=== PATIENT | female | born 1945 | race Caucasian/White ===

== ENCOUNTER → 2017-05-08 | Outpatient (CLI) | payer OTHER ==
[~2017-05-08] MED LIST: ASPI81TA85 PO; ATEN25TA PO; CALC600T57 PO; CALC600T60 PO; CINN500C9 PO; CRAN500C2 PO; CRES5TAB PO; FISH1CAP14 PO; LEVO10VL PO; LIPI20TA PO; MAGN400T14 PO; METF500T13 PO; MULT1TAB8 PO; NEXI40CA PO; OMEP20CA3 PO; PRAV20TA2 PO; TYLE1TAB5 PO; VITA2000 PO; VITATAB56 PO
--- NOTE | 2017-05-08 13:04 | REPMRS ---
Patient History The patient states she has not had a clinical breast exam in over a year. No known family history of cancer. Reductions of both breasts, 2000. Took hormonal contraceptives for 2 years. Took unspecified hormones for 10 years. Digital Woman Screen Mammo: May 08, 2017 - Exam #: [id number] Bilateral CC and MLO view(s) were taken. Technologist: Elsie Lira, Technologist Prior study comparison: April 14, 2016, digital woman screen mammo performed at [facility]. February 15, 2015, digital woman screen mammo performed at [facility]. FINDINGS: There are scattered fibroglandular densities. There has been no change in the appearance of the mammogram from the prior studies. There is a mild amount of residual fibroglandular tissue which is fairly symmetric. There is no interval development of dominant mass, architectural distortion, or clustered microcalcification suggestive of malignancy. ASSESSMENT: BI-RADS/ACR category 1 mammogram. Negative. Recommendation Routine screening mammogram in 1 year (for women over age 40). This mammogram was interpreted with the aid of an FDA-approved computer-aided dectection system. Electronically Signed By: Stephen Fan MD 05/08/17 [id number]
== END ==
LOC: M WHC 10:50
PROVIDERS: ATTEND Family Medicine
DX: Z12.31 Encounter for screening mammogram for malignant neoplasm of breast (principal)

== ENCOUNTER → 2017-06-11 | Outpatient (CLI) | payer OTHER ==
--- NOTE | 2017-06-13 10:05 | DEXA ---
AP SPINE L1 - L4 0.903 -2.4 -0.6 LT FEMUR TOTAL 0.825 -1.5 0.2 RT FEMUR TOTAL 0.805 -1.6 0.0 TOTAL BODY TOTAL OTHER DUAL FEMUR FRAX* ASSESSMENT Risk factors: Not performed. 10 year probability of fracture Major osteoporotic fracture % Hip fracture % COMMENTS: There is low bone density of the spine and hips. The density of the spine has increased 1.9% since 05/2015. The density of the left hip has decreased 0.5% since 05/2015. The density of the right hip has decreased 5.2% since 05/2015. FOLLOW-UP: Recommendation for the next bone density exam: 2 years. GILLES
== END ==
LOC: M WHC 12:51
PROVIDERS: ATTEND Internal Medicine Endocrinology, Diabetes & Metabolism
DX: M85.9 Disorder of bone density and structure, unspecified (principal)

== ENCOUNTER 2017-07-19 09:21 | Outpatient (CLI) | payer OTHER ==
[~2017-07-19] VITALS: Ht 157.5 cm; Wt 76.2 kg
[2017-07-19] MEDS ORDERED: NS 1,000 ML IV ONE (10:00)
[2017-07-19] MEDS ORDERED: fentaNYL 100 MCG/2 ML INJECTION (J3010) As Ordered ONE (11:25)
[2017-07-19] MEDS ORDERED: LIDOCAINE 2% INJ 100 MG/5 ML SDV (FOR ANES.) As Ordered ONE (11:26)
[2017-07-19] MEDS ORDERED: PROPOFOL 200 MG/20 ML VIAL As Ordered ONE (11:35)
--- NOTE | 2017-07-19 11:35 | ROOR ---
Patient Name: Narda Granado Procedure Date: 07/19/2017 11:17 AM Date of : 1945 Age: 71 Room: [facility] Gender: Female Note Status: Finalized Procedure: Upper GI endoscopy Indications: Suspected esophageal reflux Providers: Santos Silva Jr, MD Referring MD: Parag Thomas MD Requesting Provider: Medicines: Propofol per Anesthesia Complications: No immediate complications. Procedure: Pre-Anesthesia Assessment: - Prior to the procedure, a History and Physical was performed, and patient medications and allergies were reviewed. The patient is competent. The risks and benefits of the procedure and the sedation options and risks were discussed with the patient. All questions were answered and informed consent was obtained. Patient identification and proposed procedure were verified by the physician and the nurse in the pre-procedure area and in the procedure room. Mental Status Examination: alert and oriented. Airway Examination: normal oropharyngeal airway and neck mobility. Respiratory Examination: clear to auscultation. CV Examination: normal. ASA Grade Assessment: II - A patient with mild systemic disease. After reviewing the risks and benefits, the patient was deemed in satisfactory condition to undergo the procedure. The anesthesia plan was to use moderate sedation / analgesia (conscious sedation). Immediately prior to administration of medications, the patient was re-assessed for adequacy to receive sedatives. The heart rate, respiratory rate, oxygen saturations, blood pressure, adequacy of pulmonary ventilation, and response to care were monitored throughout the procedure. The physical status of the patient was re-assessed after the procedure. The Colonoscope was introduced through the anus and advanced to the second part of duodenum. The upper GI endoscopy was accomplished without difficulty. The patient tolerated the procedure well. Findings: The upper third of the esophagus, middle third of the esophagus and lower third of the esophagus were normal. The cardia, gastric fundus, gastric body and gastric antrum were normal. Localized mildly erythematous mucosa without bleeding was found in the prepyloric region of the stomach. The duodenal bulb, first portion of the duodenum and second portion of the duodenum were normal. Impression: - Normal upper third of esophagus, middle third of esophagus and lower third of esophagus. - Normal cardia, gastric fundus, gastric body and antrum. - Erythematous mucosa in the prepyloric region of the stomach. - Normal duodenal bulb, first portion of the duodenum and second portion of the duodenum. - No specimens collected. Recommendation: - Discharge patient to home (ambulatory). - Use Prilosec (omeprazole) 40 mg PO daily. Santos Silva MD Santos Silva Jr, MD 07/19/2017 11:35:00 AM This report has been signed electronically. Number of Addenda: 0 Note Initiated On: 07/19/2017 11:17 AM Estimated Blood Loss: Estimated blood loss: none.
--- NOTE | 2017-07-19 11:48 | ROOR ---
Patient Name: Narda Granado Procedure Date: 07/19/2017 11:18 AM Date of : 1945 Age: 71 Room: [facility] Gender: Female Note Status: Finalized Procedure: Colonoscopy Indications: Positive fecal immunochemical test Providers: Santos Silva Jr, MD Referring MD: Parag Thomas MD Requesting Provider: Medicines: Propofol per Anesthesia Complications: No immediate complications. Procedure: Pre-Anesthesia Assessment: - Prior to the procedure, a History and Physical was performed, and patient medications and allergies were reviewed. The patient is competent. The risks and benefits of the procedure and the sedation options and risks were discussed with the patient. All questions were answered and informed consent was obtained. Patient identification and proposed procedure were verified by the physician and the nurse in the pre-procedure area and in the procedure room. Mental Status Examination: alert and oriented. Airway Examination: normal oropharyngeal airway and neck mobility. Respiratory Examination: clear to auscultation. CV Examination: normal. ASA Grade Assessment: II - A patient with mild systemic disease. After reviewing the risks and benefits, the patient was deemed in satisfactory condition to undergo the procedure. The anesthesia plan was to use moderate sedation / analgesia (conscious sedation). Immediately prior to administration of medications, the patient was re-assessed for adequacy to receive sedatives. The heart rate, respiratory rate, oxygen saturations, blood pressure, adequacy of pulmonary ventilation, and response to care were monitored throughout the procedure. The physical status of the patient was re-assessed after the procedure. The Colonoscope was introduced through the anus and advanced to the cecum, identified by appendiceal orifice and ileocecal valve. The colonoscopy was performed without difficulty. The patient tolerated the procedure well. The quality of the bowel preparation was adequate. Findings: Hemorrhoids were found on perianal exam. Non-bleeding internal hemorrhoids were found during endoscopy. The hemorrhoids were moderate. Multiple small and large-mouthed diverticula were found in the sigmoid colon. The rectum, sigmoid colon, descending colon, transverse colon, ascending colon, cecum and ileocecal valve appeared normal. Impression: - Hemorrhoids found on perianal exam. - Non-bleeding internal hemorrhoids. - Diverticulosis in the sigmoid colon. - The rectum, sigmoid colon, descending colon, transverse colon, ascending colon, cecum and ileocecal valve are normal. - No specimens collected. Recommendation: - Discharge patient to home (ambulatory). - Repeat colonoscopy in 10 years for screening purposes. Santos Silva MD Santos Silva Jr, MD 07/19/2017 11:48:09 AM This report has been signed electronically. Number of Addenda: 0 Note Initiated On: 07/19/2017 11:18 AM Estimated Blood Loss: Estimated blood loss: none.
[2017-07-19] MEDS ORDERED: KETOROLAC 30 MG/ML VIAL (J1885) As Ordered ONE (13:01)
[2017-07-19] MEDS ORDERED: KETOROLAC 30 MG/ML VIAL (J1885) IV ONE (13:15)
[2017-07-19] MEDS ORDERED: SIMETHICONE 80 MG CHEW TAB PO ONE (13:15)
[2017-07-19 13:35] VITALS: BP 143/66
== END 2017-07-19 13:55 | disposition home or self-care (01) ==
LOC: M OPP 09:21
PROVIDERS: ATTEND Surgery
DX: K62.5 Hemorrhage of anus and rectum (principal); K57.30 Diverticulosis of large intestine without perforation or abscess without bleeding; K64.0 First degree hemorrhoids; K64.8 Other hemorrhoids; K31.89 Other diseases of stomach and duodenum; K21.9 Gastro-esophageal reflux disease without esophagitis; I10 Essential (primary) hypertension; E78.5 Hyperlipidemia, unspecified; E11.9 Type 2 diabetes mellitus without complications; E03.9 Hypothyroidism, unspecified; R12 Heartburn; M19.90 Unspecified osteoarthritis, unspecified site; R06.83 Snoring; R06.02 Shortness of breath; Z88.0 Allergy status to penicillin; Z88.1 Allergy status to other antibiotic agents; Z88.8 Allergy status to other drugs, medicaments and biological substances; Z79.84 Long term (current) use of oral hypoglycemic drugs; Z79.899 Other long term (current) drug therapy; Z79.82 Long term (current) use of aspirin
CPT/HCPCS: 43235; 45378; J1885; J3010

== ENCOUNTER 2017-11-26 11:15 | Inpatient (IN) | payer OTHER ==
[~2017-11-26 11:15] MED LIST changes: -ASPI81TA85 PO; -ATEN25TA PO; -CALC600T57 PO; -CALC600T60 PO; -CINN500C9 PO; -CRAN500C2 PO; -CRES5TAB PO; +ENOXAPARIN 40 MG/0.4 ML SYRINGE (J1650) SC; -FISH1CAP14 PO; -LEVO10VL PO; -LIPI20TA PO; -MAGN400T14 PO; -METF500T13 PO; -MULT1TAB8 PO; -NEXI40CA PO; -OMEP20CA3 PO; -PRAV20TA2 PO; -TYLE1TAB5 PO; -VITA2000 PO; -VITATAB56 PO
[2017-11-26] MEDS: MORPHINE 4 MG/ML 1ML VIAL (J2270) IV ×3 (12:09→13:27)
[2017-11-26] MEDS: ONDANSETRON 4MG/2ML VIAL (J2405) IV (12:09)
[2017-11-26 13:09] LABS: BASO # 0.1 10^3/uL (0.0-0.2); BASO % 0.6 % (0.0-1.0); EOS # 0.3 10^3/uL (0.0-0.50); EOS % 3.1 % (0.0-3.0); HEMATOCRIT 41.1 % (36.0-47.0); HEMOGLOBIN 13.8 g/dl (12.0-16.0); LYMPH % 20.6 % (24.0-44.0); MEAN CORPUSCULAR HEMOGLOBIN 29.4 pg (27.0-33.0); MEAN CORPUSCULAR HGB CONC 33.6 g/dl (32.0-36.5); MEAN CORPUSCULAR VOLUME 87.4 fl (80.0-96.0); MONO # 0.6 10^3/uL (0.0-0.8); MONO % 6.1 % (0.0-5.0); NEUTROPHILS # 6.5 10^3/uL (1.8-7.7); NEUTROPHILS % 68.6 % (36.0-66.0); PLATELET COUNT, AUTOMATED 330 10^3/uL (150-450); WHITE BLOOD COUNT 9.5 10^3/uL (4.0-10.0)
[2017-11-26] MEDS: NS 1,000 ML IV ×3 (13:09→23:30)
[2017-11-26 13:18] LABS: INR 0.96; PROTHROMBIN TIME 12.9 SECONDS (12.4-14.5)
[2017-11-26 13:22] LABS: ANION GAP 9 MEQ/L (8-16); BLOOD UREA NITROGEN 13 MG/DL (7-18); CALCIUM LEVEL 9.2 MG/DL (8.8-10.2); CARBON DIOXIDE LEVEL 26 MEQ/L (21-32); CHLORIDE LEVEL 104 MEQ/L (98-107); CK-MB VALUE MASS 1.1 NG/ML (0.0-3.6); CPK CREATINE PHOSPHOKINASE 129 U/L (26-192); CREATININE FOR GFR 0.85 MG/DL (0.55-1.30); GLOMERULAR FILTRATION RATE > 60.0 (>39); GLUCOSE, FASTING 182 MG/DL (70-100); MB/CK RELATIVE INDEX 0.85 (< OR =4); POTASSIUM SERUM 3.5 MEQ/L (3.5-5.1); SODIUM LEVEL 139 MEQ/L (136-145); TROPONIN I < 0.02 NG/ML (< 0.10)
[2017-11-26] MEDS ORDERED: GLUCOSE 4 GM CHEW TABLET PO (14:30)
[2017-11-26] MEDS ORDERED: DEXTROSE 50% 50 ML SYRINGE IV (14:30)
[2017-11-26] MEDS ORDERED: GLUCAGON FOR INJ 1 MG VIAL (J1610) SC (14:30)
[2017-11-26] MEDS: NORCO, ANEXSIA 5/325MG TABLET (HYDROcodone/ACETAMINOPHEN) PO (15:18)
[2017-11-26] MEDS: HumaLOG INSULIN (NovoLOG) PER UNIT SC (18:00)
[2017-11-26] MEDS: VANCOMYCIN HCL 1,000 MG, VIAL MATE ADAPTER 1 EACH in D5W 250 ML IV (18:30)
[2017-11-26] MEDS ORDERED: MIDAZOLAM INJ 2 MG/2 ML VIAL (J2250) As Ordered (20:42)
[2017-11-26] MEDS ORDERED: KETAMINE HCL 200 MG/20 ML VIAL As Ordered (20:42)
[2017-11-26] MEDS ORDERED: PROPOFOL 200 MG/20 ML VIAL As Ordered ×2 (20:43)
[2017-11-26] MEDS: VANCOMYCIN 1000 MG/20 ML VIAL (J3370) As Ordered (21:25)
[2017-11-26] MEDS ORDERED: ePHEDrine INJ 50 MG/ML VIAL As Ordered (21:26)
[2017-11-26] MEDS ORDERED: PHENYLephrine HCL 500 MCG/5 ML (100MCG/ML) SYRINGE (J2370) As Ordered (21:31)
[2017-11-26] MEDS ORDERED: PHENYLEPHRINE INJ 10MG/ML VIAL (J2370) As Ordered (21:39)
[2017-11-26] MEDS: CLINDAMYCIN INJ 900MG/6ML VIAL As Ordered (21:47)
[2017-11-26] MEDS ORDERED: fentaNYL 100 MCG/2 ML INJECTION (J3010) IV (23:00)
[2017-11-26] MEDS: LR 1,000 ML IV (23:00)
[2017-11-26] MEDS ORDERED: ONDANSETRON 4MG/2ML VIAL (J2405) IV (23:00)
[2017-11-27] MEDS: PRAVASTATIN 20 MG TAB PO ×2 (00:13→20:22)
[2017-11-27] MEDS: SENOKOT S TAB PO ×3 (00:13→20:23)
[2017-11-27] MEDS: METOPROLOL SUCC *XL* 12.5MG PER 1/2 TAB (TopROL *XL*) PO ×3 (00:14→20:23)
[2017-11-27] MEDS: ONDANSETRON 4 MG TAB (S0181) PO ×2 (00:16→09:13)
[2017-11-27] MEDS: NORCO, ANEXSIA 5/325MG TABLET (HYDROcodone/ACETAMINOPHEN) PO ×5 (01:52→21:44)
[2017-11-27] MEDS: LEVOTHYROXINE 112MCG TABLET (0.112MG) PO (05:58)
[2017-11-27] MEDS: HumaLOG INSULIN (NovoLOG) PER UNIT SC ×5 (06:00→20:23)
[2017-11-27 07:19] LABS: HEMATOCRIT 29.5 % (36.0-47.0); MEAN CORPUSCULAR HEMOGLOBIN 29.7 pg (27.0-33.0); MEAN CORPUSCULAR HGB CONC 33.2 g/dl (32.0-36.5); MEAN CORPUSCULAR VOLUME 89.4 fl (80.0-96.0); RED CELL DISTRIBUTION WIDTH 12.1 % (11.5-14.5); WHITE BLOOD COUNT 8.5 10^3/uL (4.0-10.0)
[2017-11-27 07:27] LABS: HEMOGLOBIN 9.8 g/dl (12.0-16.0); PLATELET COUNT, AUTOMATED 215 10^3/uL (150-450)
[2017-11-27 07:33] LABS: ANION GAP 10 MEQ/L (8-16); BLOOD UREA NITROGEN 13 MG/DL (7-18); CALCIUM LEVEL 7.9 MG/DL (8.8-10.2); CARBON DIOXIDE LEVEL 27 MEQ/L (21-32); CHLORIDE LEVEL 102 MEQ/L (98-107); CREATININE FOR GFR 0.64 MG/DL (0.55-1.30); GLOMERULAR FILTRATION RATE > 60.0 (>39); GLUCOSE, FASTING 177 MG/DL (70-100); POTASSIUM SERUM 3.8 MEQ/L (3.5-5.1); SODIUM LEVEL 139 MEQ/L (136-145)
[2017-11-27] MEDS: ENOXAPARIN 40 MG/0.4 ML SYRINGE (J1650) SC (09:12)
[2017-11-27] MEDS: OMEPRAZOLE 20 MG CAP PO (09:13)
[2017-11-27] MEDS: MOM 30ML SUSPENSION UDC PO (09:13)
[2017-11-27] MEDS: MIRALAX *UNIT DOSE* 17GM PACKET PO (09:13)
[2017-11-27] MEDS: VANCOMYCIN HCL 1,000 MG, VIAL MATE ADAPTER 1 EACH in D5W 250 ML IV (09:13)
[2017-11-27] MEDS: MULTIVITAMINS/MINERALS THERAP 1 TAB PO (09:13)
[2017-11-27 13:27] LABS: BEDSIDE GLUCOSE 206 MG/DL (83-110)
[2017-11-27 17:06] LABS: BEDSIDE GLUCOSE 147 MG/DL (83-110)
[2017-11-27] MEDS: CALCIUM/VITAMIN D 250 MG TABLET PO (17:16)
[2017-11-27] MEDS: ACETAMINOPHEN TAB 650MG DOSE (2X325MG) PO (20:24)
[2017-11-27 20:47] LABS: BEDSIDE GLUCOSE 173 MG/DL (83-110)
[2017-11-27 20:47] LABS: BEDSIDE GLUCOSE 185 MG/DL (83-110)
[2017-11-27 20:47] LABS: BEDSIDE GLUCOSE 145 MG/DL (83-110)
[2017-11-28] MEDS: NORCO, ANEXSIA 5/325MG TABLET (HYDROcodone/ACETAMINOPHEN) PO ×4 (04:49→20:51)
[2017-11-28] MEDS: LEVOTHYROXINE 112MCG TABLET (0.112MG) PO (06:29)
[2017-11-28 06:34] LABS: HEMATOCRIT 28.7 % (36.0-47.0); HEMOGLOBIN 9.5 g/dl (12.0-16.0); MEAN CORPUSCULAR HEMOGLOBIN 29.5 pg (27.0-33.0); MEAN CORPUSCULAR HGB CONC 33.1 g/dl (32.0-36.5); MEAN CORPUSCULAR VOLUME 89.1 fl (80.0-96.0); PLATELET COUNT, AUTOMATED 216 10^3/uL (150-450); RED BLOOD COUNT 3.22 10^6/uL (4.00-5.40); WHITE BLOOD COUNT 8.8 10^3/uL (4.0-10.0)
[2017-11-28 06:49] LABS: ANION GAP 5 MEQ/L (8-16); BLOOD UREA NITROGEN 11 MG/DL (7-18); CALCIUM LEVEL 8.5 MG/DL (8.8-10.2); CARBON DIOXIDE LEVEL 31 MEQ/L (21-32); CHLORIDE LEVEL 103 MEQ/L (98-107); CREATININE FOR GFR 0.66 MG/DL (0.55-1.30); GLOMERULAR FILTRATION RATE > 60.0 (>39); GLUCOSE, FASTING 158 MG/DL (70-100); MAGNESIUM LEVEL 2.7 MG/DL (1.8-2.4); POTASSIUM SERUM 4.3 MEQ/L (3.5-5.1); SODIUM LEVEL 139 MEQ/L (136-145)
[2017-11-28] MEDS: MIRALAX *UNIT DOSE* 17GM PACKET PO (08:07)
[2017-11-28] MEDS: MOM 30ML SUSPENSION UDC PO (08:07)
[2017-11-28] MEDS: ENOXAPARIN 40 MG/0.4 ML SYRINGE (J1650) SC (08:07)
[2017-11-28] MEDS: CALCIUM/VITAMIN D 250 MG TABLET PO (08:08)
[2017-11-28] MEDS: MULTIVITAMINS/MINERALS THERAP 1 TAB PO (08:08)
[2017-11-28] MEDS: HumaLOG INSULIN (NovoLOG) PER UNIT SC ×4 (08:08→20:38)
[2017-11-28] MEDS: METOPROLOL SUCC *XL* 12.5MG PER 1/2 TAB (TopROL *XL*) PO ×2 (08:09→20:36)
[2017-11-28] MEDS: SENOKOT S TAB PO ×2 (08:09→20:37)
[2017-11-28] MEDS: PREVNAR 13 VACCINE SYRINGE (CPT CODE:90670) IM (13:16)
[2017-11-28 15:00] LABS: BEDSIDE GLUCOSE 168 MG/DL (83-110)
[2017-11-28 17:24] LABS: BEDSIDE GLUCOSE 156 MG/DL (83-110)
[2017-11-28] MEDS: PRAVASTATIN 20 MG TAB PO (20:37)
[2017-11-28] MEDS: OMEPRAZOLE 20 MG CAP PO (20:37)
[2017-11-29 02:54] LABS: BEDSIDE GLUCOSE 140 MG/DL (83-110)
[2017-11-29] MEDS: LEVOTHYROXINE 112MCG TABLET (0.112MG) PO (05:15)
[2017-11-29] MEDS: NORCO, ANEXSIA 5/325MG TABLET (HYDROcodone/ACETAMINOPHEN) PO ×4 (05:16→23:39)
[2017-11-29 07:56] LABS: HEMATOCRIT 27.6 % (36.0-47.0); HEMOGLOBIN 9.2 g/dl (12.0-16.0); MEAN CORPUSCULAR HEMOGLOBIN 30.3 pg (27.0-33.0); MEAN CORPUSCULAR HGB CONC 33.3 g/dl (32.0-36.5); MEAN CORPUSCULAR VOLUME 90.8 fl (80.0-96.0); PLATELET COUNT, AUTOMATED 220 10^3/uL (150-450); RED BLOOD COUNT 3.04 10^6/uL (4.00-5.40); WHITE BLOOD COUNT 8.2 10^3/uL (4.0-10.0)
[2017-11-29 08:18] LABS: ANION GAP 6 MEQ/L (8-16); BLOOD UREA NITROGEN 10 MG/DL (7-18); CALCIUM LEVEL 8.3 MG/DL (8.8-10.2); CARBON DIOXIDE LEVEL 31 MEQ/L (21-32); CHLORIDE LEVEL 102 MEQ/L (98-107); CREATININE FOR GFR 0.55 MG/DL (0.55-1.30); GLOMERULAR FILTRATION RATE > 60.0 (>39); GLUCOSE, FASTING 187 MG/DL (70-100); MAGNESIUM LEVEL 2.6 MG/DL (1.8-2.4); POTASSIUM SERUM 4.5 MEQ/L (3.5-5.1); SODIUM LEVEL 139 MEQ/L (136-145)
[2017-11-29] MEDS: HumaLOG INSULIN (NovoLOG) PER UNIT SC ×4 (08:29→21:26)
[2017-11-29] MEDS: CALCIUM/VITAMIN D 250 MG TABLET PO (09:57)
[2017-11-29] MEDS: MULTIVITAMINS/MINERALS THERAP 1 TAB PO (09:57)
[2017-11-29] MEDS: MOM 30ML SUSPENSION UDC PO (09:57)
[2017-11-29] MEDS: SENOKOT S TAB PO ×2 (09:57→21:26)
[2017-11-29] MEDS: MIRALAX *UNIT DOSE* 17GM PACKET PO (09:57)
[2017-11-29] MEDS: METOPROLOL SUCC *XL* 12.5MG PER 1/2 TAB (TopROL *XL*) PO ×2 (09:58→21:26)
[2017-11-29] MEDS: ENOXAPARIN 40 MG/0.4 ML SYRINGE (J1650) SC (10:25)
[2017-11-29] MEDS: LEVEMIR (INSULIN DETEMIR) 1 UNITS/0.01ML SC (11:02)
[2017-11-29] MEDS ORDERED: FLEET ENEMA PR (11:45)
[2017-11-29] MEDS: OMEPRAZOLE 20 MG CAP PO (21:25)
[2017-11-29] MEDS: PRAVASTATIN 20 MG TAB PO (21:25)
[2017-11-29 22:33] LABS: BEDSIDE GLUCOSE 165 MG/DL (83-110)
[2017-11-29 22:33] LABS: BEDSIDE GLUCOSE 212 MG/DL (83-110)
[2017-11-29 22:33] LABS: BEDSIDE GLUCOSE 214 MG/DL (83-110)
[2017-11-29 22:33] LABS: BEDSIDE GLUCOSE 176 MG/DL (83-110)
[2017-11-30] MEDS: LEVOTHYROXINE 112MCG TABLET (0.112MG) PO (05:56)
[2017-11-30] MEDS: NORCO, ANEXSIA 5/325MG TABLET (HYDROcodone/ACETAMINOPHEN) PO ×4 (05:56→22:06)
[2017-11-30] MEDS: ONDANSETRON 4 MG TAB (S0181) PO (05:59)
[2017-11-30 07:06] LABS: HEMOGLOBIN 9.4 g/dl (12.0-16.0); MEAN CORPUSCULAR HEMOGLOBIN 30.1 pg (27.0-33.0); MEAN CORPUSCULAR HGB CONC 33.6 g/dl (32.0-36.5); MEAN CORPUSCULAR VOLUME 89.7 fl (80.0-96.0); PLATELET COUNT, AUTOMATED 284 10^3/uL (150-450); RED BLOOD COUNT 3.12 10^6/uL (4.00-5.40); RED CELL DISTRIBUTION WIDTH 12.1 % (11.5-14.5); WHITE BLOOD COUNT 9.2 10^3/uL (4.0-10.0)
[2017-11-30 07:24] LABS: ANION GAP 8 MEQ/L (8-16); BLOOD UREA NITROGEN 11 MG/DL (7-18); CALCIUM LEVEL 8.3 MG/DL (8.8-10.2); CARBON DIOXIDE LEVEL 28 MEQ/L (21-32); CHLORIDE LEVEL 102 MEQ/L (98-107); CREATININE FOR GFR 0.64 MG/DL (0.55-1.30); GLOMERULAR FILTRATION RATE > 60.0 (>39); GLUCOSE, FASTING 188 MG/DL (70-100); MAGNESIUM LEVEL 2.4 MG/DL (1.8-2.4); SODIUM LEVEL 138 MEQ/L (136-145)
[2017-11-30] MEDS: HumaLOG INSULIN (NovoLOG) PER UNIT SC ×4 (07:55→21:00)
[2017-11-30] MEDS: ENOXAPARIN 40 MG/0.4 ML SYRINGE (J1650) SC (07:55)
[2017-11-30] MEDS: SENOKOT S TAB PO ×2 (07:56→21:00)
[2017-11-30] MEDS: MIRALAX *UNIT DOSE* 17GM PACKET PO (07:56)
[2017-11-30] MEDS: MOM 30ML SUSPENSION UDC PO (07:56)
[2017-11-30] MEDS: CALCIUM/VITAMIN D 250 MG TABLET PO (09:01)
[2017-11-30] MEDS: MULTIVITAMINS/MINERALS THERAP 1 TAB PO (09:01)
[2017-11-30] MEDS: METOPROLOL SUCC *XL* 12.5MG PER 1/2 TAB (TopROL *XL*) PO ×2 (09:03→21:53)
[2017-11-30] MEDS: LEVEMIR (INSULIN DETEMIR) 1 UNITS/0.01ML SC (09:04)
[2017-11-30 12:01] LABS: BEDSIDE GLUCOSE 199 MG/DL (83-110)
[2017-11-30] MEDS: PRAVASTATIN 20 MG TAB PO (21:53)
[2017-11-30] MEDS: OMEPRAZOLE 20 MG CAP PO (21:54)
[2017-12-01 03:12] LABS: BEDSIDE GLUCOSE 184 MG/DL (83-110)
[2017-12-01 03:12] LABS: BEDSIDE GLUCOSE 170 MG/DL (83-110)
[2017-12-01] MEDS: LEVOTHYROXINE 112MCG TABLET (0.112MG) PO (06:22)
[2017-12-01] MEDS: NORCO, ANEXSIA 5/325MG TABLET (HYDROcodone/ACETAMINOPHEN) PO ×3 (06:23→20:49)
[2017-12-01 06:58] LABS: ANION GAP 8 MEQ/L (8-16); BLOOD UREA NITROGEN 14 MG/DL (7-18); CALCIUM LEVEL 8.7 MG/DL (8.8-10.2); CARBON DIOXIDE LEVEL 27 MEQ/L (21-32); CHLORIDE LEVEL 102 MEQ/L (98-107); CREATININE FOR GFR 0.59 MG/DL (0.55-1.30); GLOMERULAR FILTRATION RATE > 60.0 (>39); GLUCOSE, FASTING 173 MG/DL (70-100); MAGNESIUM LEVEL 2.3 MG/DL (1.8-2.4); POTASSIUM SERUM 3.9 MEQ/L (3.5-5.1); SODIUM LEVEL 137 MEQ/L (136-145)
[2017-12-01 07:13] LABS: HEMATOCRIT 27.6 % (36.0-47.0); MEAN CORPUSCULAR HEMOGLOBIN 29.6 pg (27.0-33.0); MEAN CORPUSCULAR HGB CONC 32.6 g/dl (32.0-36.5); MEAN CORPUSCULAR VOLUME 90.8 fl (80.0-96.0); PLATELET COUNT, AUTOMATED 295 10^3/uL (150-450); RED BLOOD COUNT 3.04 10^6/uL (4.00-5.40); RED CELL DISTRIBUTION WIDTH 12.3 % (11.5-14.5); WHITE BLOOD COUNT 8.8 10^3/uL (4.0-10.0)
[2017-12-01] MEDS: METOPROLOL SUCC *XL* 12.5MG PER 1/2 TAB (TopROL *XL*) PO ×2 (08:23→20:50)
[2017-12-01] MEDS: MULTIVITAMINS/MINERALS THERAP 1 TAB PO (08:23)
[2017-12-01] MEDS: CALCIUM/VITAMIN D 250 MG TABLET PO (08:23)
[2017-12-01] MEDS: ENOXAPARIN 40 MG/0.4 ML SYRINGE (J1650) SC (08:24)
[2017-12-01] MEDS: HumaLOG INSULIN (NovoLOG) PER UNIT SC ×5 (08:24→20:51)
[2017-12-01] MEDS: LEVEMIR (INSULIN DETEMIR) 1 UNITS/0.01ML SC (08:25)
[2017-12-01] MEDS: SENOKOT S TAB PO ×3 (08:25→20:52)
[2017-12-01] MEDS: MOM 30ML SUSPENSION UDC PO (08:25)
[2017-12-01] MEDS: MIRALAX *UNIT DOSE* 17GM PACKET PO (08:25)
[2017-12-01] MEDS ORDERED: MOM 30ML SUSPENSION UDC PO (09:00)
[2017-12-01] MEDS ORDERED: MIRALAX *UNIT DOSE* 17GM PACKET PO (09:00)
[2017-12-01] MEDS: ONDANSETRON 4 MG TAB (S0181) PO (15:32)
[2017-12-01] MEDS: PRAVASTATIN 20 MG TAB PO (20:49)
[2017-12-01] MEDS: OMEPRAZOLE 20 MG CAP PO (20:49)
[2017-12-02 06:21] LABS: HEMATOCRIT 29.1 % (36.0-47.0); HEMOGLOBIN 9.6 g/dl (12.0-16.0); MEAN CORPUSCULAR HEMOGLOBIN 29.5 pg (27.0-33.0); MEAN CORPUSCULAR VOLUME 89.5 fl (80.0-96.0); PLATELET COUNT, AUTOMATED 372 10^3/uL (150-450); RED BLOOD COUNT 3.25 10^6/uL (4.00-5.40); RED CELL DISTRIBUTION WIDTH 12.5 % (11.5-14.5); WHITE BLOOD COUNT 8.1 10^3/uL (4.0-10.0)
[2017-12-02] MEDS: LEVOTHYROXINE 112MCG TABLET (0.112MG) PO (06:24)
[2017-12-02] MEDS: NORCO, ANEXSIA 5/325MG TABLET (HYDROcodone/ACETAMINOPHEN) PO ×3 (06:30→21:58)
[2017-12-02 06:38] LABS: ANION GAP 8 MEQ/L (8-16); BLOOD UREA NITROGEN 14 MG/DL (7-18); CALCIUM LEVEL 8.6 MG/DL (8.8-10.2); CARBON DIOXIDE LEVEL 30 MEQ/L (21-32); CHLORIDE LEVEL 102 MEQ/L (98-107); CREATININE FOR GFR 0.64 MG/DL (0.55-1.30); GLOMERULAR FILTRATION RATE > 60.0 (>39); GLUCOSE, FASTING 156 MG/DL (70-100); MAGNESIUM LEVEL 2.3 MG/DL (1.8-2.4); SODIUM LEVEL 140 MEQ/L (136-145)
[2017-12-02] MEDS: SENOKOT S TAB PO ×2 (09:04→20:18)
[2017-12-02] MEDS: METOPROLOL SUCC *XL* 12.5MG PER 1/2 TAB (TopROL *XL*) PO ×2 (09:04→20:18)
[2017-12-02] MEDS: CALCIUM/VITAMIN D 250 MG TABLET PO (09:05)
[2017-12-02] MEDS: LEVEMIR (INSULIN DETEMIR) 1 UNITS/0.01ML SC (09:05)
[2017-12-02] MEDS: MULTIVITAMINS/MINERALS THERAP 1 TAB PO (09:05)
[2017-12-02] MEDS: HumaLOG INSULIN (NovoLOG) PER UNIT SC ×4 (09:06→21:00)
[2017-12-02] MEDS: ENOXAPARIN 40 MG/0.4 ML SYRINGE (J1650) SC (09:06)
[2017-12-02] MEDS: PANTOPRAZOLE 40MG TAB (PROTONIX) PO (12:33)
[2017-12-02] MEDS: PRAVASTATIN 20 MG TAB PO (20:18)
[2017-12-02 21:15] LABS: BEDSIDE GLUCOSE 116 MG/DL (83-110)
[2017-12-03 02:39] LABS: BEDSIDE GLUCOSE 197 MG/DL (83-110)
[2017-12-03 02:39] LABS: BEDSIDE GLUCOSE 135 MG/DL (83-110)
[2017-12-03 02:39] LABS: BEDSIDE GLUCOSE 160 MG/DL (83-110)
[2017-12-03 02:39] LABS: BEDSIDE GLUCOSE 161 MG/DL (83-110)
[2017-12-03 02:39] LABS: BEDSIDE GLUCOSE 231 MG/DL (83-110)
[2017-12-03] MEDS: LEVOTHYROXINE 112MCG TABLET (0.112MG) PO (05:37)
[2017-12-03] MEDS: NORCO, ANEXSIA 5/325MG TABLET (HYDROcodone/ACETAMINOPHEN) PO ×2 (05:37→10:51)
[2017-12-03 06:13] LABS: HEMATOCRIT 30.8 % (36.0-47.0); HEMOGLOBIN 9.9 g/dl (12.0-16.0); MEAN CORPUSCULAR HEMOGLOBIN 28.9 pg (27.0-33.0); MEAN CORPUSCULAR HGB CONC 32.1 g/dl (32.0-36.5); MEAN CORPUSCULAR VOLUME 90.1 fl (80.0-96.0); PLATELET COUNT, AUTOMATED 424 10^3/uL (150-450); RED BLOOD COUNT 3.42 10^6/uL (4.00-5.40); RED CELL DISTRIBUTION WIDTH 13.2 % (11.5-14.5); WHITE BLOOD COUNT 8.2 10^3/uL (4.0-10.0)
[2017-12-03 06:42] LABS: ANION GAP 7 MEQ/L (8-16); BLOOD UREA NITROGEN 14 MG/DL (7-18); CALCIUM LEVEL 8.7 MG/DL (8.8-10.2); CARBON DIOXIDE LEVEL 30 MEQ/L (21-32); CHLORIDE LEVEL 101 MEQ/L (98-107); CREATININE FOR GFR 0.68 MG/DL (0.55-1.30); GLOMERULAR FILTRATION RATE > 60.0 (>39); GLUCOSE, FASTING 167 MG/DL (70-100); MAGNESIUM LEVEL 2.6 MG/DL (1.8-2.4); POTASSIUM SERUM 3.9 MEQ/L (3.5-5.1); SODIUM LEVEL 138 MEQ/L (136-145)
[2017-12-03] MEDS: CALCIUM/VITAMIN D 250 MG TABLET PO (08:07)
[2017-12-03] MEDS: METOPROLOL SUCC *XL* 12.5MG PER 1/2 TAB (TopROL *XL*) PO (08:07)
[2017-12-03] MEDS: PANTOPRAZOLE 40MG TAB (PROTONIX) PO (08:07)
[2017-12-03] MEDS: SENOKOT S TAB PO (08:08)
[2017-12-03] MEDS: MULTIVITAMINS/MINERALS THERAP 1 TAB PO (08:08)
[2017-12-03] MEDS: HumaLOG INSULIN (NovoLOG) PER UNIT SC (08:08)
[2017-12-03] MEDS: LEVEMIR (INSULIN DETEMIR) 1 UNITS/0.01ML SC (08:09)
[2017-12-03] MEDS: ENOXAPARIN 40 MG/0.4 ML SYRINGE (J1650) SC (08:09)
== END 2017-12-03 11:10 | disposition home health service (06) | DRG 481 ==
LOC: M ED 11:15 → M ED INP 14:47 → M MS5PR 16:05
PROC: 0QS704Z Reposition Left Upper Femur with Internal Fixation Device, Open Approach (ICD-10-PCS; principal; 2017-11-26 07:30)
DX: S72.142A Displaced intertrochanteric fracture of left femur, initial encounter for closed fracture (principal); D62 Acute posthemorrhagic anemia; E11.9 Type 2 diabetes mellitus without complications; E03.9 Hypothyroidism, unspecified; E78.5 Hyperlipidemia, unspecified; E66.9 Obesity, unspecified; M81.0 Age-related osteoporosis without current pathological fracture; W11.XXXA Fall on and from ladder, initial encounter; Y92.009 Unspecified place in unspecified non-institutional (private) residence as the place of occurrence of the external cause; Z79.899 Other long term (current) drug therapy; Z88.0 Allergy status to penicillin; Z88.8 Allergy status to other drugs, medicaments and biological substances; Z79.82 Long term (current) use of aspirin; N39.3 Stress incontinence (female) (male); M51.36 Other intervertebral disc degeneration, lumbar region; K59.00 Constipation, unspecified

== ENCOUNTER 2017-12-20 11:31 | Emergency (ER) | payer OTHER ==
[2017-12-20 12:06] LABS: BASO # 0.1 10^3/uL (0.0-0.2); EOS # 0.3 10^3/uL (0.0-0.50); EOS % 5.1 % (0.0-3.0); HEMATOCRIT 40.7 % (36.0-47.0); HEMOGLOBIN 13.4 g/dl (12.0-16.0); IMMATURE GRANULOCYTE % 0.4 % (0-3.0); LYMPH # 1.2 10^3/uL (1.5-4.5); LYMPH % 22.7 % (24.0-44.0); MEAN CORPUSCULAR HEMOGLOBIN 30.1 pg (27.0-33.0); MEAN CORPUSCULAR HGB CONC 32.9 g/dl (32.0-36.5); MEAN CORPUSCULAR VOLUME 91.5 fl (80.0-96.0); MONO # 0.4 10^3/uL (0.0-0.8); MONO % 6.8 % (0.0-5.0); NEUTROPHILS # 3.3 10^3/uL (1.8-7.7); PLATELET COUNT, AUTOMATED 440 10^3/uL (150-450); RED BLOOD COUNT 4.45 10^6/uL (4.00-5.40); RED CELL DISTRIBUTION WIDTH 13.2 % (11.5-14.5); WHITE BLOOD COUNT 5.1 10^3/uL (4.0-10.0)
[2017-12-20 12:15] LABS: INR 0.98; PROTHROMBIN TIME 13.1 SECONDS (12.4-14.5)
[2017-12-20] MEDS: MECLIZINE 25 MG TABLET PO (12:30)
[2017-12-20 12:39] LABS: ANION GAP 7 MEQ/L (8-16); BLOOD UREA NITROGEN 10 MG/DL (7-18); CALCIUM LEVEL 9.7 MG/DL (8.8-10.2); CARBON DIOXIDE LEVEL 29 MEQ/L (21-32); CHLORIDE LEVEL 104 MEQ/L (98-107); CPK CREATINE PHOSPHOKINASE 37 U/L (26-192); CREATININE FOR GFR 0.71 MG/DL (0.55-1.30); GLOMERULAR FILTRATION RATE > 60.0 (>39); GLUCOSE, FASTING 149 MG/DL (70-100); MAGNESIUM LEVEL 2.3 MG/DL (1.8-2.4); POTASSIUM SERUM 4.2 MEQ/L (3.5-5.1); SODIUM LEVEL 140 MEQ/L (136-145); TROPONIN I < 0.02 NG/ML (< 0.10)
[2017-12-20 15:54] LABS: CPK CREATINE PHOSPHOKINASE 42 U/L (26-192); MB/CK RELATIVE INDEX 2.38 (< OR =4); TROPONIN I < 0.02 NG/ML (< 0.10)
== END 2017-12-20 16:31 | disposition home or self-care (01) ==
LOC: M ED 11:31
DX: R42 Dizziness and giddiness (principal); R00.0 Tachycardia, unspecified; I51.9 Heart disease, unspecified; E11.9 Type 2 diabetes mellitus without complications; Z88.0 Allergy status to penicillin; Z88.1 Allergy status to other antibiotic agents; Z79.899 Other long term (current) drug therapy; Z79.84 Long term (current) use of oral hypoglycemic drugs
CPT/HCPCS: 71045

== ENCOUNTER → 2018-03-31 | Outpatient (REF) | payer OTHER | LOC: M LAB REF 09:35 | DX: R30.0 Dysuria (principal) | CPT/HCPCS: 87086 ==

== ENCOUNTER → 2018-05-09 | Outpatient (CLI) | payer OTHER | LOC: M WHC 09:31 | DX: Z12.31 Encounter for screening mammogram for malignant neoplasm of breast (principal) | CPT/HCPCS: 77067 ==

== ENCOUNTER 2019-04-30 09:40 | Emergency (ER) | payer MEDICARE, OTHER ==
[~2019-04-30] VITALS: Ht 157.5 cm; Wt 68.2 kg
[~2019-04-30 09:40] MED LIST changes: +ASPI81TA85 PO; +ATEN25TA PO; +CALC600T57 PO; +CALC600T60 PO; +CINN500C9 PO; +CRAN500C2 PO; +CRES5TAB PO; -ENOXAPARIN 40 MG/0.4 ML SYRINGE (J1650) SC; +FISH100049 PO; +FISH1CAP14 PO; +LEVO100I PO; +LEVO112T2 PO; +LIPI20TA PO; +LOVE1INJ SC; +MAGN400T14 PO; +MECL-68 PO; +METF500T13 PO; +METO1TAB32; +MULT1TAB8 PO; +NEXI40CA PO; +OMEP20CA4 PO; +PERC5TAB12 PO; +PRAV20TA2 PO; +TYLE1TAB5 PO; +VITA2000 PO; +VITATAB56 PO
[2019-04-30] MEDS ORDERED: MOME0.1O (09:46)
[2019-04-30] MEDS ORDERED: AZIT-12 (09:46)
--- NOTE | 2019-04-30 10:36 | REP ---
CHEST, TWO VIEWS: Two views of the chest are performed and compared to a prior study of 12/20/2017. There is no acute infiltrate. Lungs are clear. Heart is normal in size. There is mild calcifications of the thoracic aorta. The mediastinal silhouette is unchanged. There are degenerative changes of the spine. There is a mild to moderate compression deformity of T12 which is probably old although it was not present on the lumbosacral spine series 08/07/2016. IMPRESSION: No acute infiltrate. Probable old compression deformity T12. Electronically Signed by Stephen Fan MD 05/02/2019 12:55 P
[2019-04-30 10:52] VITALS: BP 140/62
[2019-04-30] MEDS ORDERED: MUCI1TAB16 PO (10:53)
[2019-04-30] MEDS ORDERED: VENTAER INH (10:53)
== END 2019-04-30 11:02 | disposition home or self-care (01) ==
LOC: M ED 09:40
DX: J20.9 Acute bronchitis, unspecified (principal); E11.9 Type 2 diabetes mellitus without complications; I10 Essential (primary) hypertension; E78.5 Hyperlipidemia, unspecified; K21.9 Gastro-esophageal reflux disease without esophagitis; E03.9 Hypothyroidism, unspecified; M54.9 Dorsalgia, unspecified; Z79.84 Long term (current) use of oral hypoglycemic drugs; Z79.899 Other long term (current) drug therapy; Z88.0 Allergy status to penicillin; Z88.1 Allergy status to other antibiotic agents

== ENCOUNTER → 2019-07-31 | Outpatient (CLI) | payer MEDICARE ==
[~2019-07-31] MED LIST changes: +AZIT-12; +MOME0.1O; +MUCI1TAB16 PO; +VENTAER INH
--- NOTE | 2019-07-31 14:55 | REPMRS ---
Patient History The patient states she had a clinical breast exam in 07/2019. No known family history of cancer. Reductions of both breasts, 2000. Took hormonal contraceptives for 2 years. Took unspecified hormones for 10 years. Digital Woman Screen Mammo: July 31, 2019 - Exam #: [id number] Bilateral CC and MLO view(s) were taken. Technologist: Elsie Lira, Technologist Prior study comparison: May 09, 2018, bilateral digital woman screen mammo performed at [facility]. May 08, 2017, digital woman screen mammo performed at [facility]. April 14, 2016, digital woman screen mammo performed at [facility]. FINDINGS: There are scattered fibroglandular densities. The patient is status post bilateral breast reduction mammoplasty. There has been no change in the appearance of the mammogram from the prior studies. There is a mild amount of scattered fibroglandular density which is fairly symmetric. There is no interval development of dominant mass, architectural distortion, or grouped microcalcification suggestive of malignancy. 3-D tomosynthesis shows no additional findings. Assessment: BI-RADS/ACR category 1 mammogram. Negative Mammogram. Recommendation Routine screening mammogram of both breasts in 1 year (for women over age 40). This patient's Lifetime Breast Cancer Risk is estimated at 2.9 %. This mammogram was interpreted with the aid of an FDA-approved computer-aided dectection system. Electronically Signed By: Jose Correa MD 07/31/19 [id number]
== END ==
LOC: M WHC 09:28
PROVIDERS: ATTEND Nurse Practitioner Family
DX: Z01.419 Encounter for gynecological examination (general) (routine) without abnormal findings (principal); Z12.31 Encounter for screening mammogram for malignant neoplasm of breast; Z98.890 Other specified postprocedural states; Z92.0 Personal history of contraception; Z92.29 Personal history of other drug therapy
CPT/HCPCS: 77063; 77067; G0101

== ENCOUNTER → 2019-08-12 | Outpatient (CLI) | payer MEDICARE ==
[~2019-08-12] MED LIST changes: +CONRAY-43 43% 50ML VIAL (Q9960) As Ordered ONE; +LIDOCAINE 1% MDV 20ML VIAL As Ordered ONE; +TRIAMCINOLONE ACETONIDE SUSP 40 MG/ML VIAL (J3301) As Ordered ONE
--- NOTE | 2019-08-13 11:13 | REP ---
LEFT SHOULDER INJECTION The procedure was performed under the direct supervision of Dr. fan. The benefits and risks including but not limited to pain infection bleeding and anaphylaxis were explained to the patient and informed consent was obtained. The left glenohumeral joint space was localized using fluoroscopic guidance. The skin was prepped and draped in a sterile fashion. 1% lidocaine was used as a local anesthetic. Using fluoroscopic guidance a 22-gauge needle was inserted and advanced into the joint. 0.5 ml of Conray 43 was injected to verify placement. 6 ml of a solution containing 5 ml of 1% lidocaine and 1 ml of Kenalog 40 mg was injected. The patient tolerated the procedure well and there were no immediate complications. Less than 6 seconds of fluoroscopy time was utilized for this procedure. Electronically Signed by EDEL Basurto 08/12/2019 05:25 P Electronically Signed by Stephen Fan MD 08/13/2019 11:05 A
== END ==
LOC: M RADPRO 12:07
PROVIDERS: ATTEND Orthopaedic Surgery
DX: M19.012 Primary osteoarthritis, left shoulder (principal)
CPT/HCPCS: 20610; 77002; J3301; Q9960

== ENCOUNTER 2019-09-07 00:02 | Emergency (ER) | payer MEDICARE ==
[~2019-09-07] VITALS: Ht 157.5 cm; Wt 71.4 kg
[~2019-09-07 00:02] MED LIST changes: -CONRAY-43 43% 50ML VIAL (Q9960) As Ordered ONE; -LIDOCAINE 1% MDV 20ML VIAL As Ordered ONE; -TRIAMCINOLONE ACETONIDE SUSP 40 MG/ML VIAL (J3301) As Ordered ONE
[2019-09-07] MEDS ORDERED: ASPI81CH33 PO (00:09)
[2019-09-07] MEDS ORDERED: LEVO50TA5 PO (00:09)
[2019-09-07] MEDS ORDERED: NS 1,000 ML IV ONE (00:30)
[2019-09-07] MEDS ORDERED: CYCL10TA (00:30)
[2019-09-07 00:41] LABS: BASO # 0.1 10^3/uL (0.0-0.2); BASO % 1.2 % (0.0-1.0); EOS # 0.3 10^3/uL (0.0-0.5); EOS % 4.5 % (0.0-3.0); HEMOGLOBIN 13.8 g/dl (12.0-15.5); LYMPH # 2.7 10^3/uL (1.5-5.0); LYMPH % 39.1 % (24.0-44.0); MEAN CORPUSCULAR HEMOGLOBIN 29.7 pg (27.0-33.0); MEAN CORPUSCULAR HGB CONC 32.9 g/dl (32.0-36.5); MEAN CORPUSCULAR VOLUME 90.3 fl (80.0-96.0); MONO # 0.6 10^3/uL (0.0-0.8); MONO % 8.3 % (0.0-5.0); NEUTROPHILS # 3.1 10^3/uL (1.5-8.5); NEUTROPHILS % 45.9 % (36.0-66.0); PLATELET COUNT, AUTOMATED 383 10^3/uL (150-450); RED BLOOD COUNT 4.65 10^6/uL (4.00-5.40); WHITE BLOOD COUNT 6.9 10^3/uL (4.0-10.0)
[2019-09-07] MEDS ORDERED: KETOROLAC 30 MG/ML VIAL (J1885) IV ONE (01:00)
[2019-09-07 01:03] LABS: ALBUMIN 3.7 GM/DL (3.2-5.2); ALT/SGPT 29 U/L (12-78); BILIRUBIN,DIRECT < 0.1 MG/DL (0.0-0.2); BILIRUBIN,TOTAL 0.3 MG/DL (0.2-1.0); LIPASE 69 U/L (73-393); TOTAL PROTEIN 7.5 GM/DL (6.4-8.2)
--- NOTE | 2019-09-07 01:37 | REPVR ---
PROCEDURE INFORMATION: Exam: CT Abdomen and Pelvis Without Contrast Exam date and time: 09/07/19 (1:05am) Age: [age] year old Clinical history: Left flank pain TECHNIQUE: Imaging protocol: Computed tomography of the abdomen and pelvis without contrast. Radiation optimization: All CT scans at this facility use at least one of these dose optimization techniques: automated exposure control; mA and/or kV adjustment per patient size (includes targeted exams where dose is matched to clinical indication); or iterative reconstruction. COMPARISON: Pelvis plain film of 11/26/17 FINDINGS: Lower lung sanders: Cardiomegaly. Liver: No solid mass. Simple cyst (1.3 cm size) in inferior right hepatic lobe. Gallbladder and bile ducts: Normal. No calcified stones. No ductal dilatation. Pancreas: Normal. No ductal dilatation. Spleen: Normal. No splenomegaly. Adrenals: Normal. No mass. Kidneys and ureters: No hydronephrosis. Probable cyst (2.1 cm size), at the anterior margin of the left kidney. Stomach and bowel: No bowel obstruction. No mucosal thickening. Left colon and sigmoid diverticuli. Appendix: No evidence of appendicitis. Intraperitoneal space: Unremarkable. No free air. No significant fluid collection. Vasculature: Unremarkable. No abdominal aortic aneurysm. Lymph nodes: Unremarkable. No enlarged lymph nodes. Bladder: Unremarkable as visualized. Reproductive: Unremarkable as visualized. Bones/joints: No acute fracture. Hardware at left hip. Soft tissues: Unremarkable. IMPRESSION: No acute findings. No hydronephrosis is appreciated. No radiodense urinary tract stones are visualized. No acute bowel pathology. No hydronephrosis. Electronically signed by: Estephania Fung On 09/07/2019 01:36:39 AM
[2019-09-07] MEDS ORDERED: BACT800T5 PO (01:57)
[2019-09-07 01:59] VITALS: BP 139/62
[2019-09-08] MEDS ORDERED: NORC1TAB7 PO (22:51)
== END 2019-09-07 02:08 | disposition home or self-care (01) ==
LOC: M ED 00:02
DX: N39.0 Urinary tract infection, site not specified (principal); E11.9 Type 2 diabetes mellitus without complications; I10 Essential (primary) hypertension; E78.5 Hyperlipidemia, unspecified; K21.9 Gastro-esophageal reflux disease without esophagitis; M54.9 Dorsalgia, unspecified; Z79.82 Long term (current) use of aspirin; Z79.84 Long term (current) use of oral hypoglycemic drugs; Z79.899 Other long term (current) drug therapy; Z88.0 Allergy status to penicillin; Z88.1 Allergy status to other antibiotic agents
CPT/HCPCS: 36415; 74176; 80047; 80076; 81001; 83690; 85025; 87088; 87186; 96361; 96374; 99284; J1885

== ENCOUNTER 2019-09-08 16:05 | Emergency (ER) | payer MEDICARE ==
[~2019-09-08] VITALS: Ht 157.5 cm; Wt 70.9 kg
[~2019-09-08 16:05] MED LIST changes: +ASPI81CH33 PO; +BACT800T5 PO; +CYCL10TA; +LEVO50TA5 PO
[2019-09-08 18:32] LABS: BASO # 0.1 10^3/uL (0.0-0.2); BASO % 1.2 % (0.0-1.0); EOS # 0.2 10^3/uL (0.0-0.5); EOS % 3.5 % (0.0-3.0); HEMATOCRIT 40.8 % (36.0-47.0); HEMOGLOBIN 13.7 g/dl (12.0-15.5); LYMPH # 1.8 10^3/uL (1.5-5.0); LYMPH % 30.1 % (24.0-44.0); MEAN CORPUSCULAR HGB CONC 33.6 g/dl (32.0-36.5); MEAN CORPUSCULAR VOLUME 89.5 fl (80.0-96.0); MONO # 0.5 10^3/uL (0.0-0.8); MONO % 8.1 % (0.0-5.0); NEUTROPHILS # 3.4 10^3/uL (1.5-8.5); NEUTROPHILS % 56.1 % (36.0-66.0); PLATELET COUNT, AUTOMATED 399 10^3/uL (150-450); RED BLOOD COUNT 4.56 10^6/uL (4.00-5.40)
[2019-09-08 18:47] LABS: ALBUMIN 3.7 GM/DL (3.2-5.2); ALT/SGPT 30 U/L (12-78); BILIRUBIN,DIRECT < 0.1 MG/DL (0.0-0.2); BILIRUBIN,TOTAL 0.2 MG/DL (0.2-1.0); BLOOD UREA NITROGEN 7 MG/DL (7-18); CALCIUM LEVEL 9.7 MG/DL (8.8-10.2); CARBON DIOXIDE LEVEL 27 MEQ/L (21-32); CHLORIDE LEVEL 102 MEQ/L (98-107); CREATININE FOR GFR 0.84 MG/DL (0.55-1.30); GLOMERULAR FILTRATION RATE > 60.0 (>39); GLUCOSE, FASTING 133 MG/DL (70-100); POTASSIUM SERUM 4.2 MEQ/L (3.5-5.1); SODIUM LEVEL 136 MEQ/L (136-145); TOTAL PROTEIN 6.8 GM/DL (6.4-8.2)
[2019-09-08 19:11] LABS: ERYTHROCYTE SEDIMENTATION RATE 16 mm/hr (0-30)
[2019-09-08] MEDS ORDERED: LORazepam 2 MG/ML VIAL (J2060) IV STA (19:23)
[2019-09-08] MEDS ORDERED: KETOROLAC 30 MG/ML VIAL (J1885) IV ONE (20:00)
[2019-09-08] MEDS ORDERED: PROHANCE 279.3MG/ML 15ML VIAL (A9576) As Ordered ONE (20:52)
--- NOTE | 2019-09-08 22:37 | REPVR ---
PROCEDURE INFORMATION: Exam: MR Lumbar Spine Without and With Contrast. Exam date and time: 09/08/2019 9:29 PM Age: 73 years old Clinical history: Patient HX: Low back pain, ble numbness; Additional info: Bilat le loss of sensation TECHNIQUE: Imaging protocol: Multiplanar magnetic resonance images of the lumbar spine without and with intravenous contrast. Contrast material: PROHANCE; Contrast volume: 14 ml; Contrast route: 22G ANGIO; COMPARISON: No relevant prior studies available. FINDINGS: Sjpwaklg-lo-hagwpb anterior compression fracture involving T12, chronic. Osseous retropulsion measures up to 3 mm. Trace retrolisthesis of L1 on L2 and L2 on L3. Remainder demonstrates preserved height and AP alignment. Multilevel disc desiccation. Disc space narrowing greatest at L5-S1, moderate to severe. There is degenerative endplate signal without evidence of discitis/osteomyelitis. Conus medullaris terminates at L1. No epidural fluid collection. No pathologic intrathecal enhancement. L1-L2: Minimal disc bulge and mild bilateral facet joint arthropathy. No significant central canal stenosis. There is mild bilateral foraminal stenosis. L2-L3: Mild bilateral facet joint arthropathy without significant central or foraminal stenosis. L3-L4: Mild to moderate facet joint arthropathy and posterior laxity of ligamentum flavum. No significant central or foraminal stenosis. L4-L5: Minimal disc bulge and mild to moderate bilateral facet joint arthropathy. No significant central canal stenosis. There is mild right foraminal stenosis. L5-S1: Mild disc osteophyte complex without significant central or foraminal stenosis. IMPRESSION: 1. No acute abnormality. 2. Chronic [id number]-bx-rkhwwj anterior compression fracture involving T12. 3. Degenerative findings as above without significant central canal stenosis. Electronically signed by: Marciano Cruz On 09/08/2019 22:37:15 PM
[2019-09-08] MEDS ORDERED: NORC1TAB7 PO (22:51)
[2019-09-08] MEDS ORDERED: NORCO 5/325MG TABLET (BULK FOR ED) PO ONE (23:00)
[2019-09-08 23:05] VITALS: BP 139/63
== END 2019-09-08 23:08 | disposition home or self-care (01) ==
LOC: M ED 16:05
DX: M54.9 Dorsalgia, unspecified (principal); N39.0 Urinary tract infection, site not specified; I51.9 Heart disease, unspecified; I10 Essential (primary) hypertension; G89.29 Other chronic pain; E07.9 Disorder of thyroid, unspecified; S22.080A Wedge compression fracture of T11-T12 vertebra, initial encounter for closed fracture; M48.061 Spinal stenosis, lumbar region without neurogenic claudication; X58.XXXA Exposure to other specified factors, initial encounter; Y92.9 Unspecified place or not applicable; Y93.9 Activity, unspecified; Y99.9 Unspecified external cause status; Z79.82 Long term (current) use of aspirin; Z79.84 Long term (current) use of oral hypoglycemic drugs; Z79.899 Other long term (current) drug therapy; Z88.0 Allergy status to penicillin; Z88.1 Allergy status to other antibiotic agents
CPT/HCPCS: 72158; 80053; 81001; 82248; 85025; 85652; 86140; 87086; 96374; 96375; 99284; A9576; J1885; J2060

== ENCOUNTER → 2019-11-07 | Outpatient (CLI) | payer MEDICARE ==
[~2019-11-07] MED LIST changes: +CONRAY-43 43% 50ML VIAL (Q9960) As Ordered ONE; +LIDOCAINE 1% MDV 20ML VIAL As Ordered ONE; -MECL-68 PO; +MECL1TAB31 PO; +NORC1TAB7 PO; +OMEP1CAP73 PO; -OMEP20CA4 PO; +TRIAMCINOLONE ACETONIDE SUSP 40 MG/ML VIAL (J3301) As Ordered ONE
--- NOTE | 2019-11-07 18:43 | REP ---
Reason For Exam/Comment: Primary osteoarthritis of the left shoulder Procedure: Left shoulder intra-articular injection The procedure was performed by EDEL Funes, under the direct supervision of Dr. Correa. The benefits and risks including but not limited to pain, infection, bleeding and anaphylaxis were explained to the patient and informed consent was obtained both verbally and written. Directly prior to the start of the procedure, a formal timeout was completed in the procedure room. The left glenohumeral joint space was localized using fluoroscopic guidance. The skin was prepped and draped in the usual sterile fashion. 5 mL of 1% lidocaine 10 mg/ml was used as a local anesthetic. Using fluoroscopic guidance a 22-gauge spinal needle was inserted and advanced to the left glenohumeral joint space. 1 mL of Conray 43 was injected to verify needle placement. A 6 mL solution containing a 5 mL 1% lidocaine 10 mg/ml and 1 ml of Kenalog 40 mg/ml was injected into the joint. The needle was removed and hemostasis was achieved. The patient tolerated the procedure well and there were no immediate complications. 0.1 minutes of fluoroscopy time was utilized for this procedure. Some fluoroscopic images are performed with last image hold technology. These images require no additional radiation. Reviewed by EDEL Camarena 11/07/2019 01:57 P Electronically Signed by Betito Correa MD 11/07/2019 06:32 P
== END ==
LOC: M RADPRO 11:17
PROVIDERS: ATTEND Orthopaedic Surgery
DX: M19.012 Primary osteoarthritis, left shoulder (principal); Z88.0 Allergy status to penicillin; Z88.1 Allergy status to other antibiotic agents
CPT/HCPCS: 20610; 77002; J3301; Q9960

== ENCOUNTER → 2019-11-10 | Outpatient (CLI) | payer MEDICARE ==
[~2019-11-10] MED LIST changes: -CONRAY-43 43% 50ML VIAL (Q9960) As Ordered ONE; -LIDOCAINE 1% MDV 20ML VIAL As Ordered ONE; -TRIAMCINOLONE ACETONIDE SUSP 40 MG/ML VIAL (J3301) As Ordered ONE
--- NOTE | 2019-11-10 17:49 | REP ---
CT of the left hip were: Axial views are acquired helical scanning and a reformatted sagittal and coronal projections. Beam-hardening reduction software is utilized. Comparison is an abdomen/pelvis CT dated 09/07/2019. There is gamma nail fixation of the left hip for an intertrochanteric/subtrochanteric fracture. The fracture appears satisfactory healed. The fracture and visualized portions of this hardware are in satisfactory positions alignment. No acute fracture is identified. There is mild osteoarthritis of the left hip. There are no lytic, blastic or destructive skeletal changes. There are no unusual calcifications. Impression: Gamma nail fixation of the left hip. The fracture and hardware are in satisfactory positions alignment. Mineralization is normal. No unusual calcifications or soft tissue fluid collections. Electronically Signed by Stephen Avery MD 11/10/2019 05:40 P
--- NOTE | 2019-11-11 08:15 | REPVR ---
PROCEDURE INFORMATION: Exam: MR Lumbar Spine Without Contrast. Exam date and time: 11/10/2019 4:07 PM Age: 74 years old Clinical indication: Pain; Lumbago; Additional info: Displaced intertrochanteric FX of lt femur, lumbago, CT also TECHNIQUE: Imaging protocol: Multiplanar magnetic resonance images of the lumbar spine without intravenous contrast. COMPARISON: MRI-LS SPINE W/O FOLL WITH CON 09/08/2019 8:38 PM FINDINGS: Vertebrae: Chronic stable moderate to severe anterior compression fracture of T12. Minimal retrolisthesis of L5 on S1. Loss of disc space at L5/S1. Disc desiccation at multiple levels. Spinal cord: Normal signal. No cord compression. T11/T12 central disc protrusion seen on sagittal images causing moderate central spinal canal stenosis with indentation on distal cord and moderate to severe bilateral neural foraminal narrowing. T12/L1: Mild retropulsion of chronic fracture, diffuse disc bulge, resulting in mild central spinal canal stenosis and moderate to severe bilateral neural foraminal narrowing. L1-L2: Minimal retrolisthesis of L1 on L2, disc desiccation, bilateral facet joint arthropathy and ligamentum flavum hypertrophy and bilateral small paracentral disc protrusions, left greater than right and mild to moderate bilateral neural foraminal narrowing. L2-L3: Disc desiccation, mildly left subarticular disc protrusion, bilateral facet joint arthropathy and ligamentum flavum hypertrophy resulting in mild right and moderate left neural foraminal narrowing. L3-L4: Disc desiccation, bilateral facet joint arthropathy, and ligamentum flavum hypertrophy without any significant central spinal canal stenosis or neural foraminal narrowing. L4-L5: Disc desiccation, diffuse disc bulge, bilateral facet joint arthropathy and ligamentum flavum hypertrophy resulting in mild indentation on thecal sac and moderate bilateral neural foraminal narrowing, right greater than left. L5-S1: Mild retrolisthesis of L5 on S1, loss of disc space and disc desiccation and mild facet joint arthropathy resulting in mild indentation on thecal sac. Bilateral neural foramina are patent. Soft tissues: Unremarkable. IMPRESSION: T11/T12 central disc protrusion seen on sagittal images causing moderate central spinal canal stenosis with indentation on distal cord and moderate to severe bilateral neural foraminal narrowing. These findings are only seen on sagittal images as no axial images were obtained at this level. T12/L1: Mild retropulsion of chronic fracture, diffuse disc bulge, resulting in mild central spinal canal stenosis and moderate to severe bilateral neural foraminal narrowing.These findings are only seen on sagittal images as no axial images were obtained at this level. Multilevel degenerative changes of the lumbar spine as described in detail above slightly progressed from prior study. Electronically signed by: Marycarmen Suárez On 11/11/2019 08:14:53 AM
== END ==
LOC: M RAD 13:49
PROVIDERS: ATTEND Orthopaedic Surgery
DX: S72.142S Displaced intertrochanteric fracture of left femur, sequela (principal); X58.XXXS Exposure to other specified factors, sequela; M54.42 Lumbago with sciatica, left side

== ENCOUNTER → 2020-05-26 | Outpatient (REF) | payer MEDICARE ==
[~2020-05-26] MED LIST changes: -ASPI81TA85 PO; +ASPI81TA86 PO; +CYCL-707; -CYCL10TA
[2020-06-28 10:03] LABS: INR 0.98; PARTIAL THROMBOPLASTIN TIME 28.8 SECONDS (25.0-38.4); PLATELET COUNT, AUTOMATED 379 10^3/uL (150-450); PROTHROMBIN TIME 13.2 SECONDS (11.8-14.0)
== END ==
LOC: M PLALAB 12:18
PROVIDERS: ATTEND Physical Medicine & Rehabilitation
DX: Z01.812 Encounter for preprocedural laboratory examination (principal); M47.817 Spondylosis without myelopathy or radiculopathy, lumbosacral region

== ENCOUNTER → 2020-06-24 | Outpatient (REF) | payer MEDICARE | LOC: M LAB REF 07:55 | PROVIDERS: ATTEND Dermatology | DX: L82.1 Other seborrheic keratosis (principal); L57.8 Other skin changes due to chronic exposure to nonionizing radiation ==

== ENCOUNTER → 2020-07-21 | Outpatient (REF) | payer MEDICARE | LOC: M LAB REF 18:19 | PROVIDERS: ATTEND Specialist | DX: K13.21 Leukoplakia of oral mucosa, including tongue (principal) ==

== ENCOUNTER → 2020-07-26 | Outpatient (REF) | payer MEDICARE | LOC: M LAB REF 18:07 | PROVIDERS: ATTEND Dermatology | DX: L57.0 Actinic keratosis (principal) | CPT/HCPCS: 11102; 88305; G0463 ==

== ENCOUNTER → 2020-08-17 | Outpatient (CLI) | payer MEDICARE ==
--- NOTE | 2020-08-17 11:25 | REPMRS ---
Patient History The patient states she had a clinical breast exam in 08/2020. No known family history of cancer. Reductions of both breasts, 2000. Took hormonal contraceptives for 2 years. Took unspecified hormones for 10 years. 3D TOMOSYNTHESIS WAS PERFORMED. [facility]%. Volpara breast density b. Digital Woman Screen Mammo: August 17, 2020 - Exam #: [id number] Bilateral CC and MLO view(s) were taken. Technologist: Elsie Lira, Technologist Prior study comparison: July 31, 2019, bilateral digital woman screen mammo performed at [facility]. May 09, 2018, bilateral digital woman screen mammo performed at [facility]. FINDINGS: There are scattered fibroglandular densities. There is no evidence of cancer on this mammogram. No significant changes when compared with prior studies. Assessment: BI-RADS/ACR category 2 mammogram. Benign Findings. Recommendation Routine screening mammogram of both breasts in 1 year (for women over age 40). This mammogram was interpreted with the aid of an FDA-approved computer-aided dectection system. Electronically Signed By: Stephen Fan MD 08/17/20 0201
--- NOTE | 2020-08-17 11:56 | DEXA ---
INDICATION: Z78.0 ASYMPTOMATIC MENOPAUSAL STATE. COMPARISON: 06/11/2017 and 06/01/2015. TECHNIQUE: Bone density was measured using dual-energy x-ray absorptiometry (DEXA). FINDINGS: AP SPINE L1-L4 BMD 0.964 g/cm2 Young Adult T-Score -1.9 Age Matched Z-Score -0.1. RT FEMUR, TOTAL BMD 0.816 g/cm2 Young Adult T-Score -1.5 Age Matched Z-Score 0.3. RT NECK BMD 0.845 g/cm2 Young Adult T-Score -1.4 Age Matched Z-Score 0.6. IMPRESSION: There is low bone density of the spine. There is low bone density of the right hip. The density of the spine has increased 8.8% since the initial exam on 06/01/2015. The density of the spine increased 6.8% since most recent exam on 06/11/2017. The density of the right hip has decreased 3.9% since the initial exam on 05/22/2015. The density of the right hip has increased 1.4% since the most recent exam on 06/11/2017. FOLLOW-UP: Recommendation for the next bone density exam: 2 years. <Electronically signed by Stephen Fan > 08/17/20 [id number]
== END ==
LOC: M WHC 10:11
PROVIDERS: ATTEND Nurse Practitioner Family
DX: Z12.31 Encounter for screening mammogram for malignant neoplasm of breast (principal); Z78.0 Asymptomatic menopausal state; Z98.890 Other specified postprocedural states; Z92.0 Personal history of contraception; Z92.29 Personal history of other drug therapy
CPT/HCPCS: 77063; 77067; 77080; G0463

== ENCOUNTER → 2020-10-05 | Outpatient (CLI) | payer MEDICARE ==
[~2020-10-05] MED LIST changes: +ISOVUE-300 61% 50ML VIAL As Ordered ONE; +LIDOCAINE 1% MDV 20ML VIAL As Ordered ONE; +TRIAMCINOLONE ACETONIDE SUSP 40 MG/ML VIAL (J3301) As Ordered ONE
--- NOTE | 2020-10-05 16:53 | REP ---
INDICATION: PRIMARY OSTEOARTHRITIS, LEFT SHOULDER. COMPARISON: None TECHNIQUE: The procedure was performed by EDEL Funes, under the direct supervision of Dr. Fan. The benefits and risks of the procedure were explained to the patient, and an informed consent was obtained. Directly prior to the start of the procedure, a formal time-out was completed in the procedure room. The left glenohumeral joint space was localized using fluoroscopic guidance. The skin was prepped and draped in a sterile fashion. Approximately 5 mL of 1% Lidocaine 10 mg/ml was used as a local anesthetic. Using fluoroscopic guidance, a #22 gauge spinal needle was inserted and advanced into the left glenohumeral joint space. Approximately 1 mL of Isovue 300 was injected to verify placement. Six mL of a solution containing 5 mL 1% lidocaine 10 mg/ml and 1 mL Kenalog 40 milligrams/milliliter was injected into the joint space. The needle was removed and hemostasis was achieved. 0.1 minutes of fluoroscopy time was utilized for this procedure. Some fluoroscopic images are performed with last image hold technology. These images require no additional radiation. FINDINGS: The patient tolerated the procedure well and there were no immediate complications. IMPRESSION: 1. Left glenohumeral intra-articular joint injection under fluoroscopic guidance. <Electronically signed by Cielo Dasilva > 10/05/20 [id number] <Electronically signed by Stephen Fan > 10/05/20 [id number]
== END ==
LOC: M RADPRO 10:44
PROVIDERS: ATTEND Orthopaedic Surgery
DX: M19.012 Primary osteoarthritis, left shoulder (principal); M25.512 Pain in left shoulder; Z88.0 Allergy status to penicillin; Z88.1 Allergy status to other antibiotic agents
CPT/HCPCS: 20610; 77002; J3301; Q9967

== ENCOUNTER → 2020-10-21 | Outpatient (CLI) | payer MEDICARE ==
[~2020-10-21] MED LIST changes: -ISOVUE-300 61% 50ML VIAL As Ordered ONE; -LIDOCAINE 1% MDV 20ML VIAL As Ordered ONE; -TRIAMCINOLONE ACETONIDE SUSP 40 MG/ML VIAL (J3301) As Ordered ONE
--- NOTE | 2020-10-21 10:58 | REP ---
INDICATION: PVD, LEG CRAMPS. TECHNIQUE: Real time genao scale and color Doppler evaluation of the left lower extremity arterial vasculature using linear high frequency transducer. FINDINGS: The ankle to brachial index of the left lower extremity is 1.0. Color Doppler interrogation demonstrates triphasic and biphasic arterial wave patterns with mild atheromatous plaquing and normal velocities. No significant areas of stenosis or occlusion are identified. PSV(cm/sec) Common femoral artery: Triphasic and 71 cm/s Profunda femoris artery: Biphasic and 55 cm/s Proximal superficial femoral artery: Triphasic and 112 cm/s Mid superficial femoral artery: Triphasic and 87 cm/s Distal superficial femoral artery: Triphasic and 55 cm/s Popliteal artery: Triphasic and 60 cm/s Proximal JOAO: Triphasic and 76 cm/s Tibioperoneal trunk: Biphasic and 39 cm/s Proximal INDUSTRIAL SERVICE TECHNICIAN: Biphasic and 79 cm/s Distal INDUSTRIAL SERVICE TECHNICIAN: Biphasic and 80 cm/s Distal JOAO: Biphasic and 52 cm/s IMPRESSION: Mild atheromatous plaquing without significant stenosis. <Electronically signed by Bubba Jain > 10/21/20 [id number]
== END ==
LOC: M RAD 09:29
PROVIDERS: ATTEND Family Medicine
DX: M79.606 Pain in leg, unspecified (principal); R25.2 Cramp and spasm

== ENCOUNTER → 2021-01-21 | Outpatient (CLI) | payer MEDICARE ==
[~2021-01-21] MED LIST changes: +ISOVUE-300 61% 50ML VIAL As Ordered ONE; +LIDOCAINE 1% MDV 20ML VIAL As Ordered ONE; +methylPREDNISolone SUSP 40MG/ML 1ML VIAL (DEPO MEDROL) As Ordered ONE
--- NOTE | 2021-01-21 18:53 | REP ---
INDICATION: INCOMPLETE ROTATOR-CUFF TEAR/RUPTURE OF L SHOULDER, NOT TRAUMA. COMPARISON: None. TECHNIQUE: The procedure was performed under the direct supervision of Dr. Fan. The benefits and risks including but not limited to pain infection and bleeding and anaphylaxis were explained to the patient and informed consent was obtained. The left glenohumeral joint space was localized using fluoroscopic guidance. The skin was prepped and draped in a sterile fashion. 1% lidocaine was used as a local anesthetic. Using fluoroscopic guidance a 22 gauge spinal needle was inserted and advanced into the joint. 1 cc of Isovue-300 was injected to verify placement. 5 cc of a solution containing 3 cc of 1% lidocaine and 2 cc of Depo-Medrol 40 mg was injected. The needle was then removed. The patient tolerated the procedure well and there were no immediate complications. Less than 6 seconds of fluoro time was utilized for this procedure. FINDINGS: None IMPRESSION: Fluoro guidance for left shoulder injection. <Electronically signed by Get Sorto > 01/21/21 [id number] <Electronically signed by Stephen Fan > 01/21/21 [id number]
== END ==
LOC: M RADPRO 10:58
PROVIDERS: ATTEND Physician Assistant Surgical
DX: M75.112 Incomplete rotator cuff tear or rupture of left shoulder, not specified as traumatic (principal)
CPT/HCPCS: 20610; 77002; J1030; Q9967

== ENCOUNTER → 2021-06-09 | Outpatient (REF) | payer MEDICARE, BC ==
[~2021-06-09] MED LIST changes: -ISOVUE-300 61% 50ML VIAL As Ordered ONE; -LIDOCAINE 1% MDV 20ML VIAL As Ordered ONE; -methylPREDNISolone SUSP 40MG/ML 1ML VIAL (DEPO MEDROL) As Ordered ONE
[2021-06-09 17:41] LABS: BACTERIA, URINE AUTO 2+ (NEGATIVE); MUCUS, URINE SMALL (NEGATIVE); RBC, URINE AUTO 7 /HPF (0-3); SQUAMOUS EPITHELIAL CELL UR AU 0 /HPF (0-6); WBC, URINE AUTO TNTC /HPF (0-3)
== END ==
LOC: M LAB REF 17:01
PROVIDERS: ATTEND Physician Assistant Medical
DX: R30.0 Dysuria (principal)

== ENCOUNTER → 2021-09-21 | Outpatient (CLI) | payer MEDICARE | LOC: M WHC 10:25 | PROVIDERS: ATTEND Nurse Practitioner Family | DX: Z01.419 Encounter for gynecological examination (general) (routine) without abnormal findings (principal); Z12.31 Encounter for screening mammogram for malignant neoplasm of breast | CPT/HCPCS: 77063; 77067; G0101 ==

== ENCOUNTER → 2021-12-19 | Outpatient (CLI) | payer MEDICARE, BC | LOC: M RAD 14:16 | PROVIDERS: ATTEND Physician Assistant Medical | DX: M79.662 Pain in left lower leg (principal); R22.42 Localized swelling, mass and lump, left lower limb ==

== ENCOUNTER → 2021-12-23 | Outpatient (CLI) | payer MEDICARE, BC ==
[~2021-12-23] MED LIST changes: +GASTROGRAFIN SOLUTION 30ML (Q9963) As Ordered ONE; +ISOVUE-370 76% 100ML VIAL As Ordered ONE
== END ==
LOC: M RAD 15:15
PROVIDERS: ATTEND Physician Assistant Medical
DX: R10.9 Unspecified abdominal pain (principal); D72.829 Elevated white blood cell count, unspecified; I70.0 Atherosclerosis of aorta; I25.10 Atherosclerotic heart disease of native coronary artery without angina pectoris; K76.89 Other specified diseases of liver; N28.1 Cyst of kidney, acquired; K57.30 Diverticulosis of large intestine without perforation or abscess without bleeding; K40.20 Bilateral inguinal hernia, without obstruction or gangrene, not specified as recurrent; K44.9 Diaphragmatic hernia without obstruction or gangrene; K42.9 Umbilical hernia without obstruction or gangrene; M51.36 Other intervertebral disc degeneration, lumbar region; M51.34 Other intervertebral disc degeneration, thoracic region
CPT/HCPCS: 74177; Q9963; Q9967

== ENCOUNTER → 2021-12-27 | Outpatient (REF) | payer MEDICARE, BC ==
[~2021-12-27] MED LIST changes: -GASTROGRAFIN SOLUTION 30ML (Q9963) As Ordered ONE; -ISOVUE-370 76% 100ML VIAL As Ordered ONE
[2021-12-27 17:19] LABS: APPEARANCE, URINE CLEAR (CLEAR); BACTERIA, URINE AUTO NEGATIVE (NEGATIVE); BILIRUBIN, URINE AUTO NEGATIVE (NEGATIVE); BLOOD, URINE BLOOD NEGATIVE (NEGATIVE); COLOR, URINE AMBER (YELLOW); GLUCOSE, URINE (UA) AUTO NEGATIVE (NEGATIVE); KETONE, URINE AUTO NEGATIVE (NEGATIVE); LEUKOCYTE ESTERASE, URINE AUTO 1+ (NEGATIVE); NITRITE, URINE AUTO POSITIVE (NEGATIVE); PROTEIN, URINE AUTO NEGATIVE (NEGATIVE); RBC, URINE AUTO 1 /HPF (0-3); SPECIFIC GRAVITY URINE AUTO 1.012 (1.002-1.035); SQUAMOUS EPITHELIAL CELL UR AU 1 /HPF (0-6); UROBILINOGEN, URINE AUTO 0.2 mg/dL (0.0-2.0); WBC, URINE AUTO 27 /HPF (0-3)
[2021-12-27 17:32] LABS: CHLORIDE,RANDOM URINE 150 MEQ/L; POTASSIUM RANDOM URINE 41.6 MEQ/L; SODIUM,RANDOM URINE 121 MEQ/L
[2021-12-27 19:31] LABS: OSMOLALITY URINE 490 MOSM/KG (50-1400)
== END ==
LOC: M LAB REF 16:26
PROVIDERS: ATTEND Physician Assistant Medical
DX: E87.1 Hypo-osmolality and hyponatremia (principal)

== ENCOUNTER → 2022-04-12 | Outpatient (CLI) | payer MEDICARE, BC | LOC: M WUC 13:45 | PROVIDERS: ATTEND Nurse Practitioner Adult Health | DX: M25.572 Pain in left ankle and joints of left foot (principal) ==

== ENCOUNTER → 2022-05-15 | Outpatient (REF) | payer MEDICARE, BC ==
[~2022-05-15] MED LIST changes: -MOME0.1O; +MOME0.1O3
[2022-05-15 13:11] LABS: INR 0.94
[2022-05-15 13:12] LABS: PARTIAL THROMBOPLASTIN TIME 25.9 SECONDS (25.9-37.0)
== END ==
LOC: M LAB REF 12:17
PROVIDERS: ATTEND Family Medicine
DX: M48.04 Spinal stenosis, thoracic region (principal)

== ENCOUNTER → 2022-07-07 | Outpatient (CLI) | payer MEDICARE, BC | LOC: M PLAIMG 14:16 | PROVIDERS: ATTEND Physician Assistant | DX: M79.605 Pain in left leg (principal); Z87.81 Personal history of (healed) traumatic fracture; M16.12 Unilateral primary osteoarthritis, left hip; K40.90 Unilateral inguinal hernia, without obstruction or gangrene, not specified as recurrent; K57.30 Diverticulosis of large intestine without perforation or abscess without bleeding; M17.12 Unilateral primary osteoarthritis, left knee; M47.818 Spondylosis without myelopathy or radiculopathy, sacral and sacrococcygeal region ==

== ENCOUNTER 2022-07-25 12:52 | Emergency (ER) | payer MEDICARE, BC ==
[~2022-07-25] VITALS: Ht 157.5 cm; Wt 68.2 kg
[2022-07-25] MEDS ORDERED: traMADol 50 MG TAB PO ONE (16:10)
[2022-07-25] MEDS ORDERED: TRAM50TA2 PO (17:25)
[2022-07-25 17:37] VITALS: BP 125/66
== END 2022-07-25 18:00 | disposition home or self-care (01) ==
LOC: M ED 12:52 → EDBD 12:52 → M ED 18:00
DX: M16.12 Unilateral primary osteoarthritis, left hip (principal); E11.9 Type 2 diabetes mellitus without complications; E78.5 Hyperlipidemia, unspecified; I10 Essential (primary) hypertension; K21.9 Gastro-esophageal reflux disease without esophagitis; M54.9 Dorsalgia, unspecified; Z79.890 Hormone replacement therapy; Z79.82 Long term (current) use of aspirin; Z79.84 Long term (current) use of oral hypoglycemic drugs; Z79.899 Other long term (current) drug therapy; Z88.0 Allergy status to penicillin; Z88.1 Allergy status to other antibiotic agents

== ENCOUNTER → 2022-07-31 | Outpatient (CLI) | payer MEDICARE, BC ==
[~2022-07-31] MED LIST changes: +TRAM50TA2 PO
== END ==
LOC: M SOG 08:20
PROVIDERS: ATTEND Orthopaedic Surgery Adult Reconstructive Orthopaedic Surgery
DX: R10.2 Pelvic and perineal pain (principal); M16.0 Bilateral primary osteoarthritis of hip; Z87.81 Personal history of (healed) traumatic fracture; M47.818 Spondylosis without myelopathy or radiculopathy, sacral and sacrococcygeal region

== ENCOUNTER → 2022-08-07 | Outpatient (CLI) | payer MEDICARE, BC ==
[~2022-08-07] MED LIST changes: +BUPIVACAINE HCL 0.5% 10ML VIAL ONE; +ISOVUE-300 61% 50ML VIAL ONE; +LIDOCAINE 1% MDV 20ML VIAL ONE; +methylPREDNISolone 80MG/ML SUSP 1ML VIAL (J1040) ONE
== END ==
LOC: M IRPRO 13:32 → M PLAIMG 13:32
PROVIDERS: ATTEND Orthopaedic Surgery Adult Reconstructive Orthopaedic Surgery
DX: M16.12 Unilateral primary osteoarthritis, left hip (principal)
CPT/HCPCS: 20610; 76000; J1040; Q9967

== ENCOUNTER → 2022-09-22 | Outpatient (CLI) | payer MEDICARE, BC ==
[~2022-09-22] MED LIST changes: -BUPIVACAINE HCL 0.5% 10ML VIAL ONE; -ISOVUE-300 61% 50ML VIAL ONE; -LIDOCAINE 1% MDV 20ML VIAL ONE; -methylPREDNISolone 80MG/ML SUSP 1ML VIAL (J1040) ONE
== END ==
LOC: M SOG 08:07
PROVIDERS: ATTEND Orthopaedic Surgery
DX: M54.40 Lumbago with sciatica, unspecified side (principal); M47.817 Spondylosis without myelopathy or radiculopathy, lumbosacral region; M53.87 Other specified dorsopathies, lumbosacral region

== ENCOUNTER → 2022-10-23 | Outpatient (CLI) | payer MEDICARE, BC | LOC: M SOG 07:55 | PROVIDERS: ATTEND Orthopaedic Surgery | DX: M54.2 Cervicalgia (principal); M25.512 Pain in left shoulder; Z96.612 Presence of left artificial shoulder joint; M47.812 Spondylosis without myelopathy or radiculopathy, cervical region ==

== ENCOUNTER → 2022-11-17 | Outpatient (CLI) | payer MEDICARE, BC | LOC: M WHC 10:06 | PROVIDERS: ATTEND Nurse Practitioner Family | DX: Z12.31 Encounter for screening mammogram for malignant neoplasm of breast (principal) ==

== ENCOUNTER → 2022-12-15 | Outpatient (CLI) | payer MEDICARE, BC ==
[~2022-12-15] MED LIST changes: +**SFHN** BUPIVACAINE HCL 0.5% 10ML VIAL ONE; +**SFHN** LIDOCAINE 1% MDV 20ML VIAL ONE; +ISOVUE-300 61% 100ML VIAL ONE; +methylPREDNISolone 80MG/ML SUSP 1ML VIAL ONE
== END ==
LOC: M PLAIMG 12:44
PROVIDERS: ATTEND Orthopaedic Surgery Adult Reconstructive Orthopaedic Surgery
DX: M16.12 Unilateral primary osteoarthritis, left hip (principal)
CPT/HCPCS: 20610; 76000; J1040; Q9967; S0020

== ENCOUNTER → 2023-02-26 | Outpatient (CLI) | payer MEDICARE, BC ==
[~2023-02-26] MED LIST changes: -**SFHN** BUPIVACAINE HCL 0.5% 10ML VIAL ONE; -**SFHN** LIDOCAINE 1% MDV 20ML VIAL ONE; +GASTROGRAFIN SOLUTION 30ML As Ordered ONE; -ISOVUE-300 61% 100ML VIAL ONE; +ISOVUE-370 76% 100ML VIAL As Ordered ONE; -methylPREDNISolone 80MG/ML SUSP 1ML VIAL ONE
== END ==
LOC: M RAD 13:48
PROVIDERS: ATTEND Family Medicine
DX: N28.1 Cyst of kidney, acquired (principal); Q44.6 Cystic disease of liver; R10.9 Unspecified abdominal pain
CPT/HCPCS: 74178; Q9963; Q9967

== ENCOUNTER → 2023-11-20 | Outpatient (CLI) | payer MEDICARE ==
[~2023-11-20] MED LIST changes: +BACI1TAB20 PO; +CINN500C12 PO; +CRAN450T4 PO; +GABA-1171 PO; -GASTROGRAFIN SOLUTION 30ML As Ordered ONE; -ISOVUE-370 76% 100ML VIAL As Ordered ONE; +KP F1200 PO; +LEVO100T5 PO; +LISI10TA22 PO; +MECL-209 PO; -MECL1TAB31 PO; +OMEP-173 PO
== END ==
LOC: M WHC 11:33
PROVIDERS: ATTEND Nurse Practitioner Family
DX: Z12.31 Encounter for screening mammogram for malignant neoplasm of breast (principal); M85.88 Other specified disorders of bone density and structure, other site; M85.861 Other specified disorders of bone density and structure, right lower leg

== ENCOUNTER → 2023-12-03 | Outpatient (CLI) | payer MEDICARE ==
[2023-12-03 17:54] LABS: ALBUMIN 3.9 G/DL (3.2-5.2); ALKALINE PHOSPHATASE 66 U/L (46-116); ALT/SGPT 21 U/L (7.0-40); AST/SGOT 14 U/L (<34); BILIRUBIN,TOTAL 0.3 MG/DL (0.3-1.2); BLOOD UREA NITROGEN 14 MG/DL (9-23); CALCIUM LEVEL 9.7 MG/DL (8.3-10.6); CARBON DIOXIDE LEVEL 30 MMOL/L (20-31); CHLORIDE LEVEL 106 MMOL/L (98-107); CREATININE FOR GFR 0.77 MG/DL (0.55-1.30); GLOMERULAR FILTRATION RATE > 60.0 (>39); GLUCOSE, FASTING 194 MG/DL (74-106); POTASSIUM SERUM 4.4 MMOL/L (3.5-5.1); SODIUM LEVEL 142 MMOL/L (136-145); TOTAL PROTEIN 6.8 G/DL (5.7-8.2)
== END ==
LOC: M WUC 10:24
PROVIDERS: ATTEND Nurse Practitioner Family
DX: M85.9 Disorder of bone density and structure, unspecified (principal); Z79.899 Other long term (current) drug therapy; Z86.39 Personal history of other endocrine, nutritional and metabolic disease

== ENCOUNTER 2024-02-18 09:33 | Emergency (ER) | payer MEDICARE ==
[~2024-02-18] VITALS: Ht 157.5 cm; Wt 72.0 kg
[2024-02-18 10:27] LABS: BASO # 0.1 10^3/uL (0.0-0.2); BASO % 1.3 % (0.0-1.0); EOS # 0.3 10^3/uL (0.0-0.5); EOS % 4.9 % (0.0-3.0); HEMATOCRIT 38.9 % (36.0-47.0); HEMOGLOBIN 12.8 g/dl (12.0-15.5); LYMPH # 1.3 10^3/uL (1.5-5.0); LYMPH % 21.6 % (24.0-44.0); MEAN CORPUSCULAR HEMOGLOBIN 28.1 pg (27.0-33.0); MEAN CORPUSCULAR HGB CONC 32.9 g/dl (32.0-36.5); MEAN CORPUSCULAR VOLUME 85.3 fl (80.0-96.0); MONO # 0.3 10^3/uL (0.0-0.8); NEUTROPHILS # 4.1 10^3/uL (1.5-8.5); NEUTROPHILS % 66.9 % (36.0-66.0); PLATELET COUNT, AUTOMATED 349 10^3/uL (150-450); RED BLOOD COUNT 4.56 10^6/uL (4.00-5.40); WHITE BLOOD COUNT 6.2 10^3/uL (4.0-10.0)
[2024-02-18 10:47] LABS: INR 1.05; PARTIAL THROMBOPLASTIN TIME 23.9 SECONDS (24.8-34.2); PROTHROMBIN TIME 13.4 SECONDS (12.5-14.5)
[2024-02-18] MEDS ORDERED: GLIM1TAB84 (10:47)
[2024-02-18] MEDS ORDERED: CYCL5TAB (10:47)
[2024-02-18] MEDS ORDERED: LEVO88TA3 (10:47)
[2024-02-18 11:02] LABS: BLOOD UREA NITROGEN 13 MG/DL (9-23); CALCIUM LEVEL 9.2 MG/DL (8.3-10.6); CARBON DIOXIDE LEVEL 26 MMOL/L (20-31); CHLORIDE LEVEL 104 MMOL/L (98-107); GLOMERULAR FILTRATION RATE > 60.0 (>39); GLUCOSE, FASTING 216 MG/DL (74-106); POTASSIUM SERUM 4.8 MMOL/L (3.5-5.1); SODIUM LEVEL 137 MMOL/L (136-145)
[2024-02-18 12:24] LABS: MAGNESIUM LEVEL 2.2 MG/DL (1.8-2.4)
[2024-02-18 12:28] LABS: THYROID STIMULATING HORMONE 1.956 uIU/ML (0.55-4.78)
[2024-02-18] MEDS ORDERED: PRED20TA PO (16:37)
[2024-02-18 16:48] VITALS: BP 126/60; TEMP 98.2; O2SAT 97
== END 2024-02-18 16:56 | disposition home or self-care (01) ==
LOC: M ED 09:33
DX: G50.1 Atypical facial pain (principal); M54.2 Cervicalgia; R20.2 Paresthesia of skin; E11.9 Type 2 diabetes mellitus without complications; I10 Essential (primary) hypertension; E78.5 Hyperlipidemia, unspecified; Z88.0 Allergy status to penicillin; Z88.1 Allergy status to other antibiotic agents; Z79.899 Other long term (current) drug therapy; Z79.82 Long term (current) use of aspirin

== ENCOUNTER → 2024-02-21 | Outpatient (CLI) | payer MEDICARE ==
[~2024-02-21] MED LIST changes: +CYCL5TAB; +GLIM1TAB84; +LEVO88TA3; +PRED20TA PO
== END ==
LOC: M RAD 07:28
PROVIDERS: ATTEND Student in an Organized Health Care Education/Training Program
DX: M25.552 Pain in left hip (principal); Z87.81 Personal history of (healed) traumatic fracture
CPT/HCPCS: 78315; A9503

== ENCOUNTER → 2024-04-01 | Outpatient (CLI) | payer MEDICARE ==
[~2024-04-01] MED LIST changes: +ISOVUE-300 61% 100ML VIAL As Ordered ONE; +LIDOCAINE 1% MDV 20ML VIAL As Ordered ONE; +methylPREDNISolone SUSP 40MG/ML 1ML VIAL (DEPO MEDROL) As Ordered ONE
== END ==
LOC: M RAD 12:59
PROVIDERS: ATTEND Student in an Organized Health Care Education/Training Program
DX: M16.12 Unilateral primary osteoarthritis, left hip (principal)
CPT/HCPCS: 20610; 77002; J1010; Q9967

== ENCOUNTER → 2024-04-03 | Outpatient (CLI) | payer MEDICARE ==
[~2024-04-03] MED LIST changes: -ISOVUE-300 61% 100ML VIAL As Ordered ONE; -LIDOCAINE 1% MDV 20ML VIAL As Ordered ONE; -methylPREDNISolone SUSP 40MG/ML 1ML VIAL (DEPO MEDROL) As Ordered ONE
== END ==
LOC: M PAIN 13:00
PROVIDERS: ATTEND Nurse Practitioner Family
DX: M79.10 Myalgia, unspecified site (principal); M54.2 Cervicalgia; M81.0 Age-related osteoporosis without current pathological fracture; L90.0 Lichen sclerosus et atrophicus; E11.9 Type 2 diabetes mellitus without complications; R00.9 Unspecified abnormalities of heart beat; Z79.02 Long term (current) use of antithrombotics/antiplatelets; Z79.84 Long term (current) use of oral hypoglycemic drugs; Z79.890 Hormone replacement therapy; Z79.891 Long term (current) use of opiate analgesic; Z79.899 Other long term (current) drug therapy; Z88.0 Allergy status to penicillin; Z88.1 Allergy status to other antibiotic agents

== ENCOUNTER → 2024-06-05 | Outpatient (CLI) | payer MEDICARE ==
[~2024-06-05] MED LIST changes: +TRIAMCINOLONE ACETONIDE SUSP 40MG/ML 1ML VIAL As Ordered ONE
== END ==
LOC: M PAIN 14:00
PROVIDERS: ATTEND Anesthesiology
DX: M79.12 Myalgia of auxiliary muscles, head and neck (principal); G89.29 Other chronic pain; E11.9 Type 2 diabetes mellitus without complications; E89.0 Postprocedural hypothyroidism; E78.00 Pure hypercholesterolemia, unspecified; M81.0 Age-related osteoporosis without current pathological fracture; Z79.82 Long term (current) use of aspirin; Z79.84 Long term (current) use of oral hypoglycemic drugs; Z79.890 Hormone replacement therapy; Z79.899 Other long term (current) drug therapy; Z88.0 Allergy status to penicillin; Z88.1 Allergy status to other antibiotic agents
CPT/HCPCS: 20552; J0665; J3301

== ENCOUNTER → 2024-07-07 | Outpatient (CLI) | payer MEDICARE ==
[~2024-07-07] MED LIST changes: -TRIAMCINOLONE ACETONIDE SUSP 40MG/ML 1ML VIAL As Ordered ONE
== END ==
LOC: M PAIN 09:45
PROVIDERS: ATTEND Nurse Practitioner Family
DX: G89.29 Other chronic pain (principal); M79.18 Myalgia, other site; E11.9 Type 2 diabetes mellitus without complications; E78.00 Pure hypercholesterolemia, unspecified; N39.3 Stress incontinence (female) (male); M81.0 Age-related osteoporosis without current pathological fracture; Z79.899 Other long term (current) drug therapy; Z88.0 Allergy status to penicillin; Z88.1 Allergy status to other antibiotic agents

== ENCOUNTER → 2024-07-15 | Outpatient (REF) | payer MEDICARE ==
[2024-07-15 18:48] LABS: TOTAL IRON BINDING CAPACITY 393 UG/DL (250-425)
[2024-07-15 18:49] LABS: FERRITIN 9.3 NG/ML (7.3-270.7)
[2024-07-15 18:50] LABS: IRON (FE) 80 UG/DL (50-170); PERCENT SATURATION 20.4 % (13.2-45.0)
[2024-07-15 18:55] LABS: VITAMIN B12 LEVEL > 2000 PG/ML (211-911)
== END ==
LOC: M LAB REF 17:53
PROVIDERS: ATTEND Physician Assistant Medical
DX: R53.83 Other fatigue (principal)

== ENCOUNTER → 2024-09-05 | Outpatient (CLI) | payer MEDICARE ==
[~2024-09-05] MED LIST changes: -CYCL5TAB; +CYCL5TAB4
== END ==
LOC: M PAIN 09:30
PROVIDERS: ATTEND Nurse Practitioner Family
DX: M54.2 Cervicalgia (principal); M79.18 Myalgia, other site; G89.29 Other chronic pain; E11.9 Type 2 diabetes mellitus without complications; E78.00 Pure hypercholesterolemia, unspecified; E03.9 Hypothyroidism, unspecified; M81.0 Age-related osteoporosis without current pathological fracture; Z79.82 Long term (current) use of aspirin; Z79.84 Long term (current) use of oral hypoglycemic drugs; Z79.890 Hormone replacement therapy; Z79.899 Other long term (current) drug therapy; Z79.891 Long term (current) use of opiate analgesic; Z88.0 Allergy status to penicillin; Z88.1 Allergy status to other antibiotic agents

== ENCOUNTER → 2024-09-22 | Outpatient (REF) | payer MEDICARE | LOC: M SFHCDERM 08:00 | PROVIDERS: ATTEND Nurse Practitioner Family | DX: C44.329 Squamous cell carcinoma of skin of other parts of face (principal) ==

== ENCOUNTER → 2024-09-26 | Outpatient (CLI) | payer MEDICARE ==
[~2024-09-26] MED LIST changes: +TRIAMCINOLONE ACETONIDE SUSP 40MG/ML 1ML VIAL As Ordered ONE
== END ==
LOC: M PAIN 16:00
PROVIDERS: ATTEND Anesthesiology
DX: M79.18 Myalgia, other site (principal); G89.29 Other chronic pain; E11.9 Type 2 diabetes mellitus without complications; E89.0 Postprocedural hypothyroidism; E78.00 Pure hypercholesterolemia, unspecified; M81.0 Age-related osteoporosis without current pathological fracture; Z79.82 Long term (current) use of aspirin; Z79.891 Long term (current) use of opiate analgesic; Z79.899 Other long term (current) drug therapy; Z79.84 Long term (current) use of oral hypoglycemic drugs; Z88.0 Allergy status to penicillin; Z88.1 Allergy status to other antibiotic agents
CPT/HCPCS: 20553; J0665; J3301

== ENCOUNTER → 2024-10-31 | Outpatient (CLI) | payer MEDICARE ==
[~2024-10-31] MED LIST changes: -TRIAMCINOLONE ACETONIDE SUSP 40MG/ML 1ML VIAL As Ordered ONE
== END ==
LOC: M WUC 13:47
PROVIDERS: ATTEND Family Medicine
DX: R05.9 Cough, unspecified (principal); I51.7 Cardiomegaly

== ENCOUNTER → 2024-11-27 | Outpatient (REF) | payer MEDICARE | LOC: M SFHCWAGY 12:23 | PROVIDERS: ATTEND Nurse Practitioner Family | DX: R30.0 Dysuria (principal) ==

== ENCOUNTER 2024-12-08 10:12 | Inpatient (IN) | payer MEDICARE ==
[~2024-12-08 10:12] MED LIST changes: -CYCL5TAB4; +CYCL5TAB4 PO; -GLIM1TAB84; +GLIM1TAB84 PO; -LEVO88TA3; +LEVO88TA3 PO
[2024-12-08 11:00] LABS: BASO # 0.1 10^3/uL (0.0-0.2); EOS # 0.1 10^3/uL (0.0-0.5); EOS % 1.5 % (0.0-3.0); HEMATOCRIT 36.9 % (36.0-47.0); HEMOGLOBIN 13.3 g/dl (12.0-15.5); LYMPH # 1.2 10^3/uL (1.5-5.0); MEAN CORPUSCULAR HEMOGLOBIN 29.4 pg (27.0-33.0); MEAN CORPUSCULAR VOLUME 81.6 fl (80.0-96.0); MONO # 0.5 10^3/uL (0.0-0.8); MONO % 5.5 % (2.0-8.0); NEUTROPHILS # 6.8 10^3/uL (1.5-8.5); PLATELET COUNT, AUTOMATED 411 10^3/uL (150-450); RED BLOOD COUNT 4.52 10^6/uL (4.00-5.40); WHITE BLOOD COUNT 8.9 10^3/uL (4.0-10.0)
[2024-12-08 11:15] LABS: INR 0.99; PROTHROMBIN TIME 13.4 SECONDS (12.5-14.5)
[2024-12-08 12:04] LABS: CK-MB VALUE MASS 2.4 NG/ML (<3.6)
[2024-12-08 12:12] LABS: ALBUMIN 4.4 G/DL (3.2-5.2); ALKALINE PHOSPHATASE 47 U/L (35-104); ALT/SGPT 32 U/L (7.0-40); AST/SGOT 26 U/L (<34); BILIRUBIN,DIRECT 0.2 MG/DL (<0.4); BILIRUBIN,TOTAL 0.7 MG/DL (0.3-1.2); BLOOD UREA NITROGEN 10 MG/DL (9-23); CALCIUM LEVEL 9.2 MG/DL (8.3-10.6); CARBON DIOXIDE LEVEL 17 MMOL/L (20-31); CHLORIDE LEVEL 82 MMOL/L (98-107); CPK CREATINE PHOSPHOKINASE 263 U/L (34-145); CREATININE FOR GFR 0.86 MG/DL (0.55-1.30); GLOMERULAR FILTRATION RATE > 60.0 (>32); GLUCOSE, FASTING 238 MG/DL (74-106); LIPASE 30 U/L (12-53); MB/CK RELATIVE INDEX 0.91 (< OR =4); POTASSIUM SERUM 5.4 MMOL/L (3.5-5.1); SODIUM LEVEL 111 MMOL/L (136-145); THYROID STIMULATING HORMONE 2.426 uIU/ML (0.55-4.78); TOTAL PROTEIN 7.6 G/DL (5.7-8.2)
[2024-12-08 13:20] LABS: CK-MB VALUE MASS 2.7 NG/ML (<3.6); CREATININE,RANDOM URINE 106.5 MG/DL
[2024-12-08 13:21] LABS: MB/CK RELATIVE INDEX 1.05 (< OR =4)
[2024-12-08] MEDS ORDERED: ISOVUE-370 76% 100ML VIAL As Ordered ONE (13:52)
[2024-12-08 15:55] LABS: SODIUM LEVEL 111 MMOL/L (136-145)
[2024-12-08] MEDS ORDERED: GLUCAGON INJ 1MG VIAL SC PRN (16:10)
[2024-12-08] MEDS ORDERED: GLUCOSE 4 GM CHEW PO PRN (16:10)
[2024-12-08] MEDS ORDERED: DEXTROSE 50% 50ML SYRINGE IV PRN (16:10)
[2024-12-08] MEDS ORDERED: METF-838 PO (16:30)
[2024-12-08] MEDS ORDERED: HYDR-4571 PO (16:34)
[2024-12-08] MEDS ORDERED: PANT40TA29 PO (16:34)
[2024-12-08] MEDS ORDERED: HOME MED LIST COMPLETE! XX SCH (16:40)
[2024-12-08 16:41] LABS: KETONE, URINE AUTO RFX NEGATIVE (NEGATIVE); LEUKOCYTE ESTERASE UR AUTO RFX NEGATIVE (NEGATIVE); MUCUS, URINE RFX SMALL (NEGATIVE); NITRITE, URINE AUTO RFX NEGATIVE (NEGATIVE); RBC, URINE AUTO RFX 1 /HPF (0-3); SQUAM EPITHELIAL CELL UR AURFX 1 /HPF (0-6); WBC, URINE AUTO RFX 1 /HPF (0-3)
[2024-12-08] MEDS: NS (Normal Saline) 0.9% 1,000 ML IV SCH (17:19)
[2024-12-08] MEDS: INSULIN LISPRO (NovoLOG) PER UNIT SC SCH ×2 (17:30→23:01)
[2024-12-08 17:44] LABS: BLOOD UREA NITROGEN 10 MG/DL (9-23); CALCIUM LEVEL 8.8 MG/DL (8.3-10.6); CARBON DIOXIDE LEVEL 22 MMOL/L (20-31); CHLORIDE LEVEL 82 MMOL/L (98-107); CREATININE FOR GFR 0.72 MG/DL (0.55-1.30); GLOMERULAR FILTRATION RATE > 60.0 (>32); GLUCOSE, FASTING 123 MG/DL (74-106)
[2024-12-08] MEDS: ONDANSETRON 4MG 2ML VIAL IV PRN (18:29)
[2024-12-08] MEDS: DICYCLOMINE 10 MG CAP PO PRN (18:30)
[2024-12-08 22:42] LABS: BLOOD UREA NITROGEN 9 MG/DL (9-23); CALCIUM LEVEL 8.4 MG/DL (8.3-10.6); CARBON DIOXIDE LEVEL 20 MMOL/L (20-31); CHLORIDE LEVEL 86 MMOL/L (98-107); CREATININE FOR GFR 0.61 MG/DL (0.55-1.30); GLOMERULAR FILTRATION RATE > 60.0 (>32); GLUCOSE, FASTING 121 MG/DL (74-106); POTASSIUM SERUM 4.6 MMOL/L (3.5-5.1); SODIUM LEVEL 114 MMOL/L (136-145)
[2024-12-08 22:50] VITALS: BP 160/76; TEMP 97.9; O2SAT 93
[2024-12-08 23:06] VITALS: BP 160/76; TEMP 97.9; O2SAT 93
[2024-12-09] MEDS: ACETAMINOPHEN *IV* 500 MG in IV 1 EA IV ONE (01:39)
[2024-12-09 03:15] VITALS: BP 128/56; TEMP 97.7; O2SAT 94
[2024-12-09] MEDS: SIMETHICONE 80MG CHEW TAB PO ONE (05:34)
[2024-12-09] MEDS: diphenhydrAMINE 50MG/ML VIAL IV ONE (05:34)
[2024-12-09 06:38] LABS: HEMATOCRIT 33.1 % (36.0-47.0); MEAN CORPUSCULAR HEMOGLOBIN 29.3 pg (27.0-33.0); MEAN CORPUSCULAR HGB CONC 36.3 g/dl (32.0-36.5); MEAN CORPUSCULAR VOLUME 80.7 fl (80.0-96.0); PLATELET COUNT, AUTOMATED 377 10^3/uL (150-450); WHITE BLOOD COUNT 6.7 10^3/uL (4.0-10.0)
[2024-12-09 07:05] LABS: CORTISOL AM 20.7 UG/DL (4.3-22.4)
[2024-12-09 07:18] LABS: ALBUMIN 3.7 G/DL (3.2-5.2); BLOOD UREA NITROGEN 6 MG/DL (9-23); CALCIUM LEVEL 8.4 MG/DL (8.3-10.6); CARBON DIOXIDE LEVEL 23 MMOL/L (20-31); CHLORIDE LEVEL 88 MMOL/L (98-107); GLOMERULAR FILTRATION RATE > 60.0 (>32); GLUCOSE, FASTING 135 MG/DL (74-106); MAGNESIUM LEVEL 1.9 MG/DL (1.8-2.4); PHOSPHORUS LEVEL 3.2 MG/DL (2.4-5.1); POTASSIUM SERUM 5.1 MMOL/L (3.5-5.1); SODIUM LEVEL 117 MMOL/L (136-145)
[2024-12-09 08:00] VITALS: BP 139/77; TEMP 97.4; O2SAT 96
[2024-12-09] MEDS: ENOXAPARIN 40MG/0.4ML SYRINGE (J1650 PER 10MG) SC SCH (08:18)
[2024-12-09] MEDS ORDERED: MIRALAX *UNIT DOSE* 17GM PACKET PO PRN (10:40)
[2024-12-09] MEDS ORDERED: CYCLOBENZAPRINE 5MG TABLET PO PRN (10:40)
[2024-12-09] MEDS ORDERED: NORCO, ANEXSIA 5/325MG TABLET (HYDROcodone/ACETAMINOPHEN) PO PRN (10:40)
[2024-12-09] MEDS: LEVOTHYROXINE 88MCG TABLET (0.088 MG) PO SCH (10:45)
[2024-12-09 11:55] VITALS: BP 128/76; TEMP 97.6; O2SAT 94
[2024-12-09] MEDS: PANTOPRAZOLE 40MG TAB (PROTONIX) PO SCH (12:11)
[2024-12-09 13:19] LABS: BLOOD UREA NITROGEN 6 MG/DL (9-23); CALCIUM LEVEL 8.6 MG/DL (8.3-10.6); CARBON DIOXIDE LEVEL 23 MMOL/L (20-31); CHLORIDE LEVEL 92 MMOL/L (98-107); CREATININE FOR GFR 0.65 MG/DL (0.55-1.30); GLOMERULAR FILTRATION RATE > 60.0 (>32); GLUCOSE, FASTING 154 MG/DL (74-106); POTASSIUM SERUM 4.6 MMOL/L (3.5-5.1); SODIUM LEVEL 123 MMOL/L (136-145)
[2024-12-09 16:00] VITALS: BP 128/74; TEMP 97.6; O2SAT 96
[2024-12-09] MEDS: ACETAMINOPHEN 500 MG TAB PO PRN (16:41)
[2024-12-09 18:22] LABS: BLOOD UREA NITROGEN 8 MG/DL (9-23); CALCIUM LEVEL 8.8 MG/DL (8.3-10.6); CARBON DIOXIDE LEVEL 21 MMOL/L (20-31); CHLORIDE LEVEL 93 MMOL/L (98-107); GLOMERULAR FILTRATION RATE > 60.0 (>32); GLUCOSE, FASTING 121 MG/DL (74-106); SODIUM LEVEL 122 MMOL/L (136-145)
[2024-12-09 19:57] VITALS: BP 152/80; TEMP 97.5; O2SAT 100
[2024-12-09] MEDS: PRAVASTATIN 20 MG TAB PO SCH (20:28)
[2024-12-09] MEDS: SIMETHICONE 80MG CHEW TAB PO PRN (20:28)
[2024-12-09] MEDS: diphenhydrAMINE 50MG/ML VIAL IV PRN (20:29)
[2024-12-09 23:38] VITALS: BP 116/71; TEMP 96.4; O2SAT 95
[2024-12-10 00:44] LABS: BLOOD UREA NITROGEN 10 MG/DL (9-23); CARBON DIOXIDE LEVEL 23 MMOL/L (20-31); CHLORIDE LEVEL 96 MMOL/L (98-107); CREATININE FOR GFR 0.63 MG/DL (0.55-1.30); GLOMERULAR FILTRATION RATE > 60.0 (>32); GLUCOSE, FASTING 126 MG/DL (74-106); POTASSIUM SERUM 4.6 MMOL/L (3.5-5.1); SODIUM LEVEL 127 MMOL/L (136-145)
[2024-12-10 06:34] LABS: BLOOD UREA NITROGEN 9 MG/DL (9-23); CALCIUM LEVEL 9.2 MG/DL (8.3-10.6); CARBON DIOXIDE LEVEL 26 MMOL/L (20-31); CHLORIDE LEVEL 95 MMOL/L (98-107); CREATININE FOR GFR 0.78 MG/DL (0.55-1.30); GLOMERULAR FILTRATION RATE > 60.0 (>32); GLUCOSE, FASTING 143 MG/DL (74-106); POTASSIUM SERUM 4.9 MMOL/L (3.5-5.1); SODIUM LEVEL 128 MMOL/L (136-145)
[2024-12-10 08:00] VITALS: BP 144/70; TEMP 97.2; O2SAT 96
[2024-12-10] MEDS: ASPIRIN 81MG CHEW TABLET PO SCH (09:17)
[2024-12-10] MEDS: METOPROLOL SUCC *XL* 25MG TAB (TopROL *XL*) PO SCH (09:17)
[2024-12-10] MEDS: SENNA 8.6 MG TAB (SENOKOT) PO PRN (09:20)
[2024-12-10 13:05] LABS: BLOOD UREA NITROGEN 12 MG/DL (9-23); CALCIUM LEVEL 9.5 MG/DL (8.3-10.6); CARBON DIOXIDE LEVEL 27 MMOL/L (20-31); CHLORIDE LEVEL 95 MMOL/L (98-107); CREATININE FOR GFR 0.73 MG/DL (0.55-1.30); GLOMERULAR FILTRATION RATE > 60.0 (>32); GLUCOSE, FASTING 166 MG/DL (74-106); POTASSIUM SERUM 4.4 MMOL/L (3.5-5.1); SODIUM LEVEL 129 MMOL/L (136-145)
[2024-12-10 15:49] VITALS: BP 132/63; TEMP 98.3; O2SAT 98
[2024-12-10] MEDS: POLYVINYL ALCOHOL OPHTH SOLN 15ML (LIQUITEARS) OU PRN (15:50)
[2024-12-10 17:51] LABS: BLOOD UREA NITROGEN 14 MG/DL (9-23); CALCIUM LEVEL 9.2 MG/DL (8.3-10.6); CARBON DIOXIDE LEVEL 25 MMOL/L (20-31); CHLORIDE LEVEL 97 MMOL/L (98-107); CREATININE FOR GFR 0.67 MG/DL (0.55-1.30); GLOMERULAR FILTRATION RATE > 60.0 (>32); GLUCOSE, FASTING 141 MG/DL (74-106); SODIUM LEVEL 130 MMOL/L (136-145)
[2024-12-10 18:56] VITALS: BP 122/78; TEMP 97.7; O2SAT 98
[2024-12-10 20:00] VITALS: O2SAT 98
[2024-12-10 20:50] VITALS: BP 125/76; TEMP 97.9; O2SAT 100
[2024-12-11 00:30] VITALS: BP 129/76; TEMP 97.7; O2SAT 99
[2024-12-11 04:10] VITALS: BP 157/64; TEMP 97.2; O2SAT 96
[2024-12-11 04:59] LABS: HEMATOCRIT 33.1 % (36.0-47.0); HEMOGLOBIN 11.7 g/dl (12.0-15.5); MEAN CORPUSCULAR HEMOGLOBIN 29.7 pg (27.0-33.0); MEAN CORPUSCULAR HGB CONC 35.3 g/dl (32.0-36.5); PLATELET COUNT, AUTOMATED 381 10^3/uL (150-450); RED BLOOD COUNT 3.94 10^6/uL (4.00-5.40); WHITE BLOOD COUNT 8.3 10^3/uL (4.0-10.0)
[2024-12-11 05:36] LABS: BLOOD UREA NITROGEN 11 MG/DL (9-23); CALCIUM LEVEL 9.3 MG/DL (8.3-10.6); CARBON DIOXIDE LEVEL 23 MMOL/L (20-31); CHLORIDE LEVEL 98 MMOL/L (98-107); CREATININE FOR GFR 0.67 MG/DL (0.55-1.30); GLOMERULAR FILTRATION RATE > 60.0 (>32); GLUCOSE, FASTING 144 MG/DL (74-106); POTASSIUM SERUM 4.3 MMOL/L (3.5-5.1); SODIUM LEVEL 131 MMOL/L (136-145)
[2024-12-11 08:07] VITALS: BP 145/79
[2024-12-11 08:36] VITALS: BP 149/81; TEMP 97.7; O2SAT 97
[2024-12-11] MEDS ORDERED: JANU25TA PO (09:24)
[2024-12-11] MEDS ORDERED: SIME80CH6 PO (09:30)
== END 2024-12-11 11:48 | disposition home or self-care (01) | DRG 644 ==
LOC: M ED 10:12 → M ED INP 15:58 → M PCU 22:44 → M MSPAV 12-10 18:55
PROVIDERS: ADMIT Internal Medicine; ATTEND Internal Medicine
DX: E22.2 Syndrome of inappropriate secretion of antidiuretic hormone (principal); E87.20 Acidosis, unspecified; E03.9 Hypothyroidism, unspecified; E11.9 Type 2 diabetes mellitus without complications; I10 Essential (primary) hypertension; E78.5 Hyperlipidemia, unspecified; R91.1 Solitary pulmonary nodule; E87.5 Hyperkalemia; E86.0 Dehydration; Z66 Do not resuscitate; Z88.0 Allergy status to penicillin; Z88.8 Allergy status to other drugs, medicaments and biological substances; Z79.82 Long term (current) use of aspirin; Z79.899 Other long term (current) drug therapy; M19.90 Unspecified osteoarthritis, unspecified site; M81.0 Age-related osteoporosis without current pathological fracture; R11.2 Nausea with vomiting, unspecified

== ENCOUNTER → 2024-12-18 | Outpatient (CLI) | payer MEDICARE ==
[~2024-12-18] MED LIST changes: +HYDR-4571 PO; +JANU25TA PO; +METF-838 PO; +PANT40TA29 PO; +SIME80CH6 PO
== END ==
LOC: M WHC 11:08
PROVIDERS: ATTEND Nurse Practitioner Family
DX: Z12.31 Encounter for screening mammogram for malignant neoplasm of breast (principal); R92.313 Mammographic fatty tissue density, bilateral breasts

== ENCOUNTER → 2025-01-01 | Outpatient (CLI) | payer MEDICARE | LOC: M WUC 12:31 | PROVIDERS: ATTEND Family Medicine | DX: M47.816 Spondylosis without myelopathy or radiculopathy, lumbar region (principal); M54.50 Low back pain, unspecified ==

== ENCOUNTER → 2025-01-01 | Outpatient (REF) | payer MEDICARE | LOC: M LAB REF 14:51 | PROVIDERS: ATTEND Family Medicine | DX: E87.1 Hypo-osmolality and hyponatremia (principal); R35.0 Frequency of micturition ==

== ENCOUNTER → 2025-10-07 | Outpatient (REF) | payer MEDICARE ==
[~2025-10-07] MED LIST changes: -PRAV20TA2 PO; +PRAV20TA78 PO
[2025-10-07 13:08] LABS: ESTIMATED AVERAGE GLUCOSE 166.0 MG/DL (60-110)
== END ==
LOC: M LAB REF 12:02
PROVIDERS: ATTEND Surgery
DX: L97.922 Non-pressure chronic ulcer of unspecified part of left lower leg with fat layer exposed (principal); Z79.899 Other long term (current) drug therapy